=== PATIENT | male | born 2000 | race Caucasian/White ===

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

== ENCOUNTER 2020-01-01 14:48 | Emergency (ER) | payer OTHER, MEDICAID, SELFPAY ==
[2020-01-01 14:59] VITALS: BP 135/63; PULSE 88; RESP 18; TEMP 36.5; O2SAT 98; BMI 25.0
--- NOTE | 2020-01-01 15:28 | ED_ITS ---
HPI - Skin/Abscess/Foreign Bdy <JESSICA Blair - Last Filed: 01/01/20 16:32> General Chief complaint: Skin/Abscess/Foreign Body Stated complaint: ABSCESS ON BUTT NEEDS HIV TESTING Time Seen by Provider: 01/01/20 14:57 Source: patient Mode of arrival: Ambulatory Limitations: no limitations History of Present Illness HPI narrative: This is a 19-year-old male, smoker, who presents to ED with recurring abscess on his buttock and also seeking prophylactic treatments for STIs and HIV post exposure. Patient reports he was incarcerated in custodial and got out yesterday and had used ketamine, smoked pot and meth and met someone via on-line/phone MIGUEL ANGEL and had an unprotected (receptive) male-male anal sex last night. The patient is not familiar with the sexual partner and the partner uses IV drug. The patient is not sure of HIV status but believes to be is a high risk. Patient denies fever, chills, nausea or vomiting. Patient noticed started draining small to abscess yesterday. Patient was treated with Bactrim in the past which seem to be effective. Related Data Previous Rx's Medication Instructions Recorded albuterol sulfate [Proventil HFA] 2 puff INH Q4HP PRN #2 inh 01/26/17 adapalene 1 miguel angel TOPICAL HS #15 gm 08/17/17 atomoxetine [Strattera] 25 mg PO QDAY #30 cap 08/17/17 buspirone 15 mg PO BID #60 tab 08/17/17 sertraline [Zoloft] 100 mg PO QDAY #30 tab 08/17/17 cetirizine 10 mg PO QDAY #30 tab 02/07/18 erythromycin 0.5 inch EYE-RIGHT BID #1 gram 07/25/19 ondansetron 4 mg PO BID-TID PRN #7 tab 07/25/19 ondansetron 4 mg PO BID-TID PRN #10 tab 09/14/19 dolutegravir 50 mg PO DAILY 28 Days #28 tab 01/01/20 doxycycline hyclate 100 mg PO BID 5 Days #10 cap 01/01/20 emtricitabine-tenofovir (TDF) 1 tab PO DAILY 28 Days #28 tab 01/01/20 Allergies Allergy/AdvReac Type Severity Reaction Status Date / Time amoxicillin [AMOXICILLIN] Allergy Mild WELTS Verified 01/01/20 14:59 Review of Systems <JESSICA Blair - Last Filed: 01/01/20 16:32> Review of Systems Narrative: General: Denies fever, chills, fatigue, malaise, sweats. HEENT: Denies sinus pain, ear pain, sore throat, difficulty swallowing, dizziness. Respiratory: Denies dyspnea, cough, wheezing, hemoptysis, sputum. Cardiovascular: Denies chest pain, palpitations, orthopnea, edema. Gastrointestinal: Denies nausea, vomiting, abdominal pain, diarrhea, const ipation, melena. : See HPI Musculoskeletal: Denies weakness, joint pain or bony pain. Skin: See HPI Neurologic: Denies weakness, headache, numbness, change in speech, confusion, seizures, incoordination. Psychiatric: No concerning psychosocial issues. 12-point review of systems is negative except for those stated above. Patient History <ISIS BlairP - Last Filed: 01/01/20 16:32> Medical History ADHD (Acute) Social History Smoking Status: Current every day smoker substance use type: marijuana Smoking Status: Current every day smoker alcohol intake frequency: holidays/special occasions only Alcohol type: beer Substance Use Type: marijuana, crack/cocaine, heroin, amphetamines, hallucinogens, tranquilizers, sedatives, opiates, painkillers, club/marine designer drugs, inhalants, methamphetamine, prescription drug, unknown and other Exam <JESSICA Blair - Last Filed: 01/01/20 16:32> Narrative Exam Narrative: General appearance: well developed, well nourished, in no acute distress. Head: normocephalic, atraumatic, no scalp lesions, non-tender. ENT: Hearing grossly intact. Nose without bleeding, purulent discharge, septal hematoma or deviation. Airway patent. Neck/Thyroid: neck supple, full range of motion, no visible masses or meningeal signs. No JVD, non-tender without lymphadenopathy. Skin: two small lesions on right buttock. small induration without fluctuance. Mild erythema. No significant warmth to palpate or drainage noted. Warm and dry and appropriate color for ethnicity. Heart: no clubbing, no cyanosis, no edema. S1 and S2 normal. RRR w/o murmurs, clicks, or bruits. Lungs: Breathing even and unlabored. No stridor. No accessory muscles used. Able to speak in full sentences. Chest: normal shape and expansion. Abdomen: non-obese, non-distended. Neurologic: alert and oriented. 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 Psych: good eye contact, normal affect. Initial Vital Signs Initial Vital Signs: Vital Signs Temperature 97.7 F 01/01/20 14:59 Pulse Rate 88 01/01/20 14:59 Respiratory Rate 18 01/01/20 14:59 Blood Pressure 135/63 01/01/20 14:59 Pulse Oximetry 98 01/01/20 14:59 <Quiana Roger DO - Last Filed: 01/04/20 07:03> Initial Vital Signs Initial Vital Signs: Vital Signs Temperature 97.7 F 01/01/20 14:59 Pulse Rate 88 01/01/20 14:59 Respiratory Rate 18 01/01/20 14:59 Blood Pressure 135/63 01/01/20 14:59 Pulse Oximetry 98 01/01/20 14:59 Scores <JESSICA Blair - Last Filed: 01/01/20 16:32> [facility] Ricarda coma scale eye opening: Spontaneous Ricarda coma scale verbal response: Orientated Woodworth coma scale motor response: Obey commands Woodworth coma scale total score: 15 Course <JESSICA Blair - Last Filed: 01/01/20 16:32> Orders Ordered: Discontinued Medications Azithromycin (Zithromax) 1,000 mg PO NOW ONE Stop: 01/01/20 15:20 Last Admin: 01/01/20 15:55 Dose: 1,000 mg Documented by: HAYDEE Ceftriaxone Sodium (Rocephin) 250 mg IM NOW ONE Stop: 01/01/20 15:31 Last Admin: 01/01/20 15:55 Dose: 250 mg Documented by: HAYDEE Vital Signs Vital signs: Vital Signs - 8 hr 01/01/20 14:59 Temperature 97.7 F Pulse Rate 88 Respiratory Rate 18 Blood Pressure 135/63 Pulse Oximetry 98 <DO Winifred Freeman Last Filed: 01/04/20 07:03> Orders Ordered: Discontinued Medications Azithromycin (Zithromax) 1,000 mg PO NOW ONE Stop: 01/01/20 15:20 Last Admin: 01/01/20 15:55 Dose: 1,000 mg Documented by: HAYDEE Ceftriaxone Sodium (Rocephin) 250 mg IM NOW ONE Stop: 01/01/20 15:31 Last Admin: 01/01/20 15:55 Dose: 250 mg Documented by: HAYDEE Vital Signs Vital signs: Vital Signs - 8 hr 01/01/20 14:59 Temperature 97.7 F Pulse Rate 88 Respiratory Rate 18 Blood Pressure 135/63 Pulse Oximetry 98 MDM - Skin/Abscess/Foreign Bdy <JESSICA Blair - Last Filed: 01/01/20 16:32> Differential Diagnosis Differential diagnosis: Likely abscess of skin or subcutaneous tissue and other (high risk sexual behavior, possible STI infection exposure) Medical Records Attestation: I reviewed the patient's medical records. Lab Data Labs: Lab Results 01/01/20 01/01/20 Range/Units 15:18 15:26 Ur Chlamydia DNA (PCR) Not detected HIV 1&2 Ab/P24 Ag 4thGn Negative (NEGATIVE) N gonorrhoeae DNA (PCR) Not detected MDM Narrative Medical decision making narrative: This is a 19-year-old male who presents to ED with two skin abscess in buttock which recurs frequently and requesting post exposure to STIs prophylactic treatment. Patient reports he had encounter male to male anal sex was a receptive person with a new partner who is considered high risk with IV drug use last night. The patient provided urine sample for GC-chlamydia test. HIV was drawn today. Patient was medicated prophylactically for GC and chlamydia with azithromycin 1 g p.o. and Rocephin 250 mg IM injection. Patient discharged to home with post exposure prophylactic medications for HIV and advised to take 28 days and start immediately since patient was with a partner who has unknown HIV status and considered high risk. Patient advised to follow-up with primary care physician for test results. Advised safe sex practice and to avoid drug use. Social work consult was done and met with [facility] and Resource contact information has been provided. Return precautions were discussed with patient and patient verbalized understanding and agreement with treatment plan. <Quiana Roger DO - Last Filed: 01/04/20 07:03> Lab Data Labs: Lab Results 01/01/20 01/01/20 Range/Units 15:18 15:26 Ur Chlamydia DNA (PCR) Not detected HIV 1&2 Ab/P24 Ag 4thGn Negative (NEGATIVE) N gonorrhoeae DNA (PCR) Not detected Discharge Plan Departure Patient Disposition: Home Clinical Impression: Concern about sexually transmitted disease in male without diagnosis Abscess of skin or subcutaneous tissue Qualifiers: Site of cutaneous abscess: buttock Qualified Code(s): L02.31 - Cutaneous abscess of buttock Discharge Date/Time: 01/01/20 16:30 Instructions: Facts About Sexually Transmitted Infections, DI for Skin Abscess Activity Restrictions/Additional Instructions: You have been diagnosed with [small to abscess in right buttock and concerns for exposures to STIs from unprotected sex with high risk partner]. What to do: *Take your medications as directed. Please start doxycycline for abscess. Take twice a day for next 5 days. Use warm pack on affected site to help with healing and drainage. Start prophylactic post exposure for HIV as soon as possible for next 28 days. You need to follow-up with her primary care physician with lab results. Please consider practicing safe sex using protection such as condoms. Please avoid drug use. The medications are transmitted to [facility]. * [facility]: [phone]; [facility] at [phone]; and [facility] at [phone] for support for substance abuse and making a new ID. *Follow up with your primary care provider in 2-3 days, call for an appointment. Let them know you were seen in the ED and that we asked you to be seen in follow up. *Return to ED if you have any new, worsening, or concerning symptoms, such as [chest pain, breathing difficulty, fever, unusual rashes, feeling like faint, or any acute concerns]. Prescriptions: New dolutegravir 50 mg tablet 50 mg PO DAILY 28 Days Qty: 28 RF: 0 emtricitabine-tenofovir (TDF) 200-300 mg tablet 1 tab PO DAILY 28 Days Qty: 28 RF: 0 doxycycline hyclate 100 mg capsule 100 mg PO BID 5 Days Qty: 10 RF: 0 No Action albuterol sulfate [Proventil HFA] 90 MCG/PUFF HFA aerosol inhaler 2 puff INH Q4HP PRNQty: 2 RF: 1 sertraline [Zoloft] 100 MG tablet 100 mg PO QDAY Qty: 30 RF: 12 adapalene 0.1 % cream 1 miguel angel Topical HS Qty: 15 RF: 1 buspirone 15 MG tablet 15 mg PO BID Qty: 60 RF: 3 atomoxetine [Strattera] 25 MG capsule 25 mg PO QDAY Qty: 30 RF: 3 cetirizine 10 mg tablet 10 mg PO QDAY Qty: 30 RF: 5 erythromycin 5 mg/gram (0.5 %) ointment 0.5 inch EYE-RIGHT BID Qty: 1 RF: 0 ondansetron 4 mg tablet,disintegrating 4 mg PO BID-TID PRN (Reason: nausea and vomiting) Qty: 7 RF: 0 ondansetron 4 mg tablet,disintegrating 4 mg PO BID-TID PRN (Reason: nausea and vomiting) Qty: 10 RF: 0 Referrals: Owen Sky MD [Family Provider] - <Quiana Roger DO - Last Filed: 01/04/20 07:03> Cosign ED Attending Cosignature Attestation: I was immediately available in the department for consultation. Documentation has been reviewed. I agree with assessment and plan.
[2020-01-01] MEDS: cefTRIAXone 1,000 MG VIAL 250 MG IM (15:55)
[2020-01-01] MEDS: AZITHROMYCIN 250 MG TABLET 1000 MG PO (15:55)
[2020-01-01 16:27] VITALS: BP 117/59; PULSE 85; RESP 18; TEMP 36.6; O2SAT 98
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
[2020-01-01 16:43] LABS: HIV 1 & 2 Ab/Ag 4th Gen Combo NEGATIVE (NEGATIVE)
[2020-01-01 17:01] LABS: Urine N gonorrhoeae NOT DETECTED
[2020-01-01 17:02] LABS: Urine Chlamydia NOT DETECTED
== END 2020-01-01 16:30 | disposition home or self-care (01) ==
PROVIDERS: Emergency Provider Nurse Practitioner Family; Family Provider Family Medicine
DX: L02.31 Cutaneous abscess of buttock (principal); Z20.2 Contact with and (suspected) exposure to infections with a predominantly sexual mode of transmission; F19.10 Other psychoactive substance abuse, uncomplicated
CPT/HCPCS: 87389; 87491; 87591; 96372; 99283; J0696

== ENCOUNTER 2020-07-07 14:08 | Emergency (ER) | payer OTHER, MEDICAID, SELFPAY ==
[2020-07-07 15:03] VITALS: BP 119/74; PULSE 66; RESP 16; TEMP 36.9; O2SAT 99
[2020-07-07 15:41] LABS: Add Manual Diff / Slide Review NO; Basophils Absolute Auto 0 /uL (0-100); Basophils Percent Auto 0.5 % (0-2); Eosinophils Absolute Auto 200 /uL (0-450); Eosinophils Percent Auto 2.4 % (2-4); Hematocrit 44.2 % (41-53); Hemoglobin 15.1 g/dL (13.5-17.5); Lymphocytes Absolute Auto 1500 /uL (1100-4500); Lymphocytes Percent Auto 24.4 % (25-40); Mean Corpuscular HGB Conc 34.2 % (30-36); Mean Corpuscular Hemoglobin 29.7 PG (26-34); Mean Corpuscular Volume 86.7 fL (80-100); Monocytes Absolute Auto 600 /uL (0-900); Monocytes Percent Auto 9.8 % (3-14); Neutrophils Absolute Auto 3900 /uL (1500-7000); Neutrophils Percent Auto 62.9 % (50-75); Platelet Count 354 X10^3/uL (150-400); Red Cell Distribution Width 12.2 % (11.6-14.8); White Blood Cell Count 6.2 X10^3/uL (4.5-11.0)
[2020-07-07 15:51] LABS: Acetaminophen < 10 ug/mL (10-30); Alanine Aminotransferase 36 IU/L (<50); Albumin 4.4 g/dL (3.5-5.0); Albumin Globulin Ratio 1.1 (1.0-2.8); Alkaline Phosphatase 82 U/L (38-126); Aspartate Aminotransferase 29 IU/L (17-59); BUN Creatinine Ratio 12.6 (6-22); Bilirubin Total 0.4 mg/dL (0.2-1.3); Blood Urea Nitrogen 12 mg/dL (9-20); Calcium 9.4 mg/dL (8.4-10.2); Carbon Dioxide 32 mmol/L (22-32); Chloride 103 mmol/L (98-107); Estimated Glomerular Filt Rate > 60.0 mL/min (>60); Ethanol (ETOH) < 10 mg/dL; Globulin 4.1 g/dL (1.7-4.1); Glucose 76 mg/dL (70-100); HEMOLYSIS < 15 (0-50); Potassium 4.5 mmol/L (3.4-5.1); Salicylate < 1.0 mg/dL (<20); Sodium 138 mmol/L (137-145); Total Protein 8.5 g/dL (6.3-8.2)
[2020-07-07 15:51] LABS: UR Morphine/Opiate cutoff 300 Negative (Negative); Ur Creatinine Normal (Normal); Ur Specific Gravity Normal (Normal); Urine Amphetamines Negative (Negative); Urine Barbiturates Negative (Negative); Urine Benzodiazepines Negative (Negative); Urine Cocaine Negative (Negative); Urine MDMA Negative (Negative); Urine Methadone Negative (Negative); Urine Methamphetamines Negative (Negative); Urine Oxycodone Negative (Negative); Urine Phencyclidine Negative (Negative); Urine Tetrahydrocannabinol Negative (Negative); Urine Tricyclic Antidepressant Negative (Negative); Urine pH Normal (Normal)
[2020-07-07 16:06] LABS: COVID19 -Nasal RAPID Negative (Negative)
[2020-07-07 16:17] LABS: Free T4, Direct Thyroxine 1.16 ng/dL (0.78-2.19)
[2020-07-07 16:31] LABS: Thyroid Stimulating Hormone 1.64 uIU/mL (0.47-4.68)
--- NOTE | 2020-07-07 16:32 | ED.MEDCLEAR ---
HPI - Medical Clearance General Chief complaint: Medical Clearance Stated complaint: Medical Clearance Time Seen by Provider: 07/07/20 16:16 Source: patient Mode of arrival: Ambulatory Limitations: no limitations History of Present Illness HPI Narrative: Patient is a 20-year-old male admits to abusing benzodiazepines in the past who is currently per his report under a court order to attend inpatient rehab. He states that his last use of benzodiazepines was 4 days ago. Purchase this over the Internet. He states that ?I am withdrawing ?however he is unable to provide any symptoms that he is having. He states he was told to come here by his aviation ordnance officer for ?medical clearance? he denies any other toxic ingestions. Related Information Previous Rx's Medication Instructions Recorded albuterol sulfate [Proventil HFA] 2 puff INH Q4HP PRN #2 inh 01/26/17 adapalene 1 miguel angel TOPICAL HS #15 gm 08/17/17 atomoxetine [Strattera] 25 mg PO QDAY #30 cap 08/17/17 buspirone 15 mg PO BID #60 tab 08/17/17 sertraline [Zoloft] 100 mg PO QDAY #30 tab 08/17/17 cetirizine 10 mg PO QDAY #30 tab 02/07/18 erythromycin 0.5 inch EYE-RIGHT BID #1 gram 07/25/19 ondansetron 4 mg PO BID-TID PRN #7 tab 07/25/19 ondansetron 4 mg PO BID-TID PRN #10 tab 09/14/19 Allergies Allergy/AdvReac Type Severity Reaction Status Date / Time amoxicillin [AMOXICILLIN] Allergy Mild WELTS Verified 07/07/20 15:05 Review of Systems Constitutional Constitutional: Denies fever(s) and Denies headache(s) ENT Ears, Nose, Mouth, and Throat: Denies headache(s) Cardiovascular Cardiovascular: Denies chest pain and Denies dyspnea Respiratory Respiratory: Denies cough and Denies dyspnea Gastrointestinal Gastrointestinal: Denies abdominal pain, Denies nausea and Denies vomiting Genitourinary Genitourinary: Denies dysuria Genitourinary: Denies dysuria Musculoskeletal Musculoskeletal: Denies arthralgias and Denies myalgias Integumentary/Breasts Skin/Breast: Denies rash Neurologic Neurologic: Denies behavioral changes and Denies headache(s) Psychiatric Psychiatric: Denies behavioral changes Hematologic/Lymphatic On Anticoagulants: No Allergic/Immunologic Allergic/Immunologic: Denies urticaria Patient History Medical History ADHD Asthma Benzodiazepine abuse Bradycardia Conduct disorder (06/11/14) Medical clearance for incarceration Polydrug abuse Self-harming behavior SUICIDAL IDEATIONS Syncope Social History Smoking Status: Current every day smoker substance use type: marijuana Smoking Status: Current every day smoker alcohol intake frequency: holidays/special occasions only Alcohol type: beer Substance Use Type: marijuana, crack/cocaine, amphetamines, methamphetamine and prescription drug Exam Initial Vital Signs Initial Vital Signs: Vital Signs Temperature 98.5 F 07/07/20 15:03 Pulse Rate 66 07/07/20 15:03 Respiratory Rate 16 07/07/20 15:03 Blood Pressure 119/74 07/07/20 15:03 Pulse Oximetry 99 07/07/20 15:03 Const General: cooperative and comfortable Limitations: mental status not altered HENSD Head: normal to inspection and normocephalic Resp Effort & Inspection: normal respiratory effort Cardio Rate: regular rate GI Inspection: non-distended Skin Rashes: no rashes Neuro General: patient alert, patient awake and patient oriented x3 Extrem General: capillary refill normal Psych Appearance: grossly normal MDM - Medical Clearance Lab Data Attestation: I reviewed the patient's lab results. Result diagrams: 07/07/20 15:30 07/07/20 15:30 Labs: Lab Results 07/07/20 07/07/20 07/07/20 Range/Units 15:30 15:30 15:30 WBC 6.2 (4.5-11.0) X10^3/uL RBC 5.10 (4.5-5.9) X10^6/uL Hgb 15.1 (13.5-17.5) g/dL Hct 44.2 (41-53) % MCV 86.7 (80-100) fL MCH 29.7 (26-34) PG MCHC 34.2 (30-36) % RDW 12.2 (11.6-14.8) % Plt Count 354 (150-400) X10^3/uL Neut % (Auto) 62.9 (50-75) % Lymph % (Auto) 24.4 L (25-40) % Vigo % (Auto) 9.8 (3-14) % Eos % (Auto) 2.4 (2-4) % Baso % (Auto) 0.5 (0-2) % Neut # (Auto) 3900 (4360-0788) /uL Lymph # (Auto) 1500 (9423-6727) /uL Vigo # (Auto) 600 (0-900) /uL Eos # (Auto) 200 (0-450) /uL Baso # (Auto) 0 (0-100) /uL Sodium 138 (137-145) mmol/L Potassium 4.5 (3.4-5.1) mmol/L Chloride 103 (98-107) mmol/L Carbon Dioxide 32 (22-32) mmol/L BUN 12 (9-20) mg/dL Creatinine 0.95 (0.66-1.25) mg/dL Estimated GFR > 60.0 (>60) mL/min BUN/Creatinine Ratio 12.6 (6-22) Glucose 76 (70-100) mg/dL Calcium 9.4 (8.4-10.2) mg/dL Total Bilirubin 0.4 (0.2-1.3) mg/dL AST 29 (17-59) IU/L ALT 36 (<50) IU/L Alkaline Phosphatase 82 (38-126) U/L Total Protein 8.5 H (6.3-8.2) g/dL Albumin 4.4 (3.5-5.0) g/dL Globulin 4.1 (1.7-4.1) g/dL Albumin/Globulin Ratio 1.1 (1.0-2.8) TSH 1.64 (0.47-4.68) uIU/mL Free T4 1.16 (0.78-2.19) ng/dL Salicylates < 1.0 (<20) mg/dL U Opiates 300ng/mL cut (Negative) Ur Oxycodone Screen (Negative) Urine Methadone Screen (Negative) Acetaminophen < 10 L (10-30) ug/mL Ur Barbiturates Screen (Negative) U Tricyclic Antidepress (Negative) Ur Phencyclidine Scrn (Negative) Ur Amphetamines Screen (Negative) U Methamphetamines Scrn (Negative) Ur MDMA Scrn (Ecstasy) (Negative) U Benzodiazepines Scrn (Negative) Urine Cocaine Screen (Negative) U Marijuana (THC) Screen (Negative) Ethyl Alcohol < 10 ( - 10) mg/dL SARS-CoV-2 (PCR) (Negative) 07/07/20 07/07/20 Range/Units 15:38 15:40 WBC (4.5-11.0) X10^3/uL RBC (4.5-5.9) X10^6/uL Hgb (13.5-17.5) g/dL Hct (41-53) % MCV (80-100) fL MCH (26-34) PG MCHC (30-36) % RDW (11.6-14.8) % Plt Count (150-400) X10^3/uL Neut % (Auto) (50-75) % Lymph % (Auto) (25-40) % Vigo % (Auto) (3-14) % Eos % (Auto) (2-4) % Baso % (Auto) (0-2) % Neut # (Auto) (9535-9292) /uL Lymph # (Auto) (6297-7352) /uL Vigo # (Auto) (0-900) /uL Eos # (Auto) (0-450) /uL Baso # (Auto) (0-100) /uL Sodium (137-145) mmol/L Potassium (3.4-5.1) mmol/L Chloride (98-107) mmol/L Carbon Dioxide (22-32) mmol/L BUN (9-20) mg/dL Creatinine (0.66-1.25) mg/dL Estimated GFR (>60) mL/min BUN/Creatinine Ratio (6-22) Glucose (70-100) mg/dL Calcium (8.4-10.2) mg/dL Total Bilirubin (0.2-1.3) mg/dL AST (17-59) IU/L ALT (<50) IU/L Alkaline Phosphatase (38-126) U/L Total Protein (6.3-8.2) g/dL Albumin (3.5-5.0) g/dL Globulin (1.7-4.1) g/dL Albumin/Globulin Ratio (1.0-2.8) TSH (0.47-4.68) uIU/mL Free T4 (0.78-2.19) ng/dL Salicylates (<20) mg/dL U Opiates 300ng/mL cut Negative (Negative) Ur Oxycodone Screen Negative (Negative) Urine Methadone Screen Negative (Negative) Acetaminophen (10-30) ug/mL Ur Barbiturates Screen Negative (Negative) U Tricyclic Antidepress Negative (Negative) Ur Phencyclidine Scrn Negative (Negative) Ur Amphetamines Screen Negative (Negative) U Methamphetamines Scrn Negative (Negative) Ur MDMA Scrn (Ecstasy) Negative (Negative) U Benzodiazepines Scrn Negative (Negative) Urine Cocaine Screen Negative (Negative) U Marijuana (THC) Screen Negative (Negative) Ethyl Alcohol ( - 10) mg/dL SARS-CoV-2 (PCR) Negative (Negative) Urine Dip Bedside Urine Glucose Negative Bedside Urine Bilirubin - Negative Bedside Urine Ketone - Negative Urine Specific Conway 1.020 Bedside Urine Occult Blood - Negative Bedside Urine pH 7.5 Bedside Urine Protein - Negative Bedside Urine Urobilinogen - Negative Bedside Urine Nitrite - Negative Bedside Urine Leukocytes - Negative Esterase MDM Narrative Medical decision making narrative: Patient states he is withdrawing from benzodiazepines however can report no symptoms to support this. He is medically cleared and can attend rehab. Discharge Plan Departure Patient Disposition: Home Clinical Impression: Benzodiazepine abuse Instructions: Substance Use Disorder Activity Restrictions/Additional Instructions: As of the time of discharge you are medically cleared. I recommend that you contact your department of aviation ordnance officer this evening to see what he/she would like you to do. Return to the emergency department for any new or worsening symptoms Prescriptions: No Action albuterol sulfate [Proventil HFA] 90 MCG/PUFF HFA aerosol inhaler 2 puff INH Q4HP PRNQty: 2 RF: 1 sertraline [Zoloft] 100 MG tablet 100 mg PO QDAY Qty: 30 RF: 12 adapalene 0.1 % cream 1 miguel angel Topical HS Qty: 15 RF: 1 buspirone 15 MG tablet 15 mg PO BID Qty: 60 RF: 3 atomoxetine [Strattera] 25 MG capsule 25 mg PO QDAY Qty: 30 RF: 3 cetirizine 10 mg tablet 10 mg PO QDAY Qty: 30 RF: 5 erythromycin 5 mg/gram (0.5 %) ointment 0.5 inch EYE-RIGHT BID Qty: 1 RF: 0 ondansetron 4 mg tablet,disintegrating 4 mg PO BID-TID PRN (Reason: nausea and vomiting) Qty: 7 RF: 0 ondansetron 4 mg tablet,disintegrating 4 mg PO BID-TID PRN (Reason: nausea and vomiting) Qty: 10 RF: 0
--- NOTE | 2020-07-07 17:30 | PC.NURSE ---
1500: I spoke with the patient's Chalk Cutter Shani on the phone who reports that she has been in touch with his counselor at [facility] and that he is hopefully going to go to detox at [facility] ([facility] in [facility] for treatment regarding addictions.
--- NOTE | 2020-07-07 17:32 | PC.NURSE ---
1505: I spoke with [place] [facility]arr[facility] who reports that they have been in contact with Susie at [facility] and that the patient must go to a medical Detox facility first before coming to [facility] due to addiction to Benzos and risk of seizures.
--- NOTE | 2020-07-07 17:33 | PC.NURSE ---
1515: I called Shani, the chief green officer again to update her on information and received from her the number for [facility] I spoke with Jennifer, the patient's counselor at [facility] and informed her that the patient is unable to go to [facility] first and needs to go to a medical Detox facility. She states she will call the different detox facilities and get back to me.
--- NOTE | 2020-07-07 17:35 | PC.NURSE ---
1545: I received a call back from Jennifer at [facility] who reports that there are no overnight beds available however the patient can call [facility] in the morning at 8AM at which time they should hopefully have a bed available for him for detox. After this detox he can then go to [facility] for extended treatment/Rehab.
--- NOTE | 2020-07-07 17:37 | PC.NURSE ---
1700: I called [facility] to ask them if the testing we had done was adequate as a medical clearance and to ask if they want the information faxed or sent with the patient. They did not answer so I left a message with the team cdl driver. I printed the patient's results including Vital Signs, Negative Covid results, Urine drug screen, and basic bloodwork including negative tylenol and aspirin levels. I also included a note form the doctor reporting no open sores with active MRSA. I sent these home with the patient and the number to call [facility] at 8am tomorrow. He states he has not had Benzos or any substances in 3 days and he feels unwell. He does not have any benzos at home to take. I asked him to call 911 should he become worse or have seizures over night. He reports he is going to stay at his [facility]s [facility]. I also called and updated Shani his hazard mitigation officer with all of this information. She will follow up with him in the morning to ensure that he calls [facility] and gets there ok with appropriate paperwork. Patient is alert and oriented and verbalizes understanding of all of this information.
--- NOTE | 2020-07-07 17:42 | PC.NURSE ---
Patient admits to addiction to benzodiazepines including Xanax and research experimental benzo called Clonazelam. He also admits to alcohol use when his benzos run out and use of meth, cocaine, and marijuana. However he reports he ahs used none of these in the last 3 days. Reports some anxiety and unwell feelings related to detox.
== END 2020-07-07 17:00 | disposition home or self-care (01) ==
PROVIDERS: Emergency Provider Emergency Medicine; Family Provider Family Medicine
DX: F13.20 Sedative, hypnotic or anxiolytic dependence, uncomplicated (principal); Z20.822 Contact with and (suspected) exposure to COVID-19
CPT/HCPCS: 36415; 80053; 80305; 80320; 80329; 81003; 84439; 84443; 85025; 87635; 99283; C9803; G0480

== ENCOUNTER 2021-03-31 11:31 | Emergency (ER) | payer OTHER, MEDICAID, SELFPAY ==
[2021-03-31 12:47] VITALS: BP 139/87; PULSE 79; RESP 19; TEMP 36.8; O2SAT 98; BMI 28.3
== END 2021-03-31 16:41 | disposition left against medical advice (07) ==
PROVIDERS: Emergency Provider Emergency Medicine; Family Provider Family Medicine
DX: R11.2 Nausea with vomiting, unspecified (principal); R19.7 Diarrhea, unspecified
CPT/HCPCS: 99281

== ENCOUNTER 2021-10-20 11:47 | Emergency (ER) | payer OTHER, MEDICAID, SELFPAY ==
[2021-10-20 11:48] VITALS: BP 138/94; PULSE 83; RESP 14; TEMP 36.7; O2SAT 99; BMI 26.6
--- NOTE | 2021-10-20 12:30 | ED.EAR ---
HPI - Ear Problem <Carmella Fallon PA-C - Last Filed: 10/20/21 15:55> General Chief complaint: Ear Stated complaint: Thinks ear infection- hearing loss Time Seen by Provider: 10/20/21 12:05 Source: patient Mode of arrival: Ambulatory History of Present Illness HPI Narrative: Patient is a 21 year old M presenting with hearing loss in his right ear. He went swimming 10 days ago and felt water in his ear that subsided that day. He then flew from [place] to [place] and reports no pain during flight. He reports he first noticed a popping sensation,mild pain, and decreased hearing while vomiting from alcohol intoxication x 5 days ago. He was then exposed to loud music at a rave x 4 days ago. He also reports recent cocaine use. He states that his mild right ear pain is well-controlled with ibuprofen that he has been taking daily. He denies any sudden sharp ear pain, discharge from ear, headache, fever, sore throat, SOB, or nasal congestion. Related Data Previous Rx's Medication Instructions Recorded albuterol sulfate 90 mcg/actuation 2 puff INH Q4HP PRN #2 inh 01/26/17 aerosol inhaler (Proventil HFA) adapalene 0.1 % topical cream 1 miguel angel TOPICAL HS #15 gm 08/17/17 atomoxetine 25 mg capsule 25 mg PO QDAY #30 cap 08/17/17 (Strattera) buspirone 15 mg tablet 15 mg PO BID #60 tab 08/17/17 sertraline 100 mg tablet (Zoloft) 100 mg PO QDAY #30 tab 08/17/17 cetirizine 10 mg tablet 10 mg PO QDAY #30 tab 02/07/18 erythromycin 5 mg/gram (0.5 %) eye 0.5 inch EYE-RIGHT BID #1 gram 07/25/19 ointment ondansetron 4 mg disintegrating 4 mg PO BID-TID PRN #7 tab 07/25/19 tablet ondansetron 4 mg disintegrating 4 mg PO BID-TID PRN #10 tab 09/14/19 tablet azithromycin 250 mg tablet See Rx Instructions .ROUTE 10/20/21 (Zithromax Z-Evert) .COMPLEX #6 tab Allergies Allergy/AdvReac Type Severity Reaction Status Date / Time amoxicillin [AMOXICILLIN] Allergy Mild WELTS Verified 10/20/21 11:52 Review of Systems <Carmella Fallon PA-C - Last Filed: 10/20/21 15:55> Constitutional Constitutional: Denies body ache(s), Denies fatigue, Denies fever(s) and Denies headache(s) Eyes Eyes: Denies change in vision, Denies irritation and Denies eye pain ENT Ears, Nose, Mouth, and Throat: Denies dysphagia, Denies dizziness, Denies ear discharge, Reports otalgia, Denies headache(s), Reports hearing loss, Denies nasal congestion, Denies sinus pain, Denies sinus pressure and Denies sore throat Cardiovascular Cardiovascular: Reports system reviewed and no additional complaints, except as documented and Denies dyspnea Respiratory Respiratory: Denies chest congestion, Denies cough and Denies dyspnea Gastrointestinal Gastrointestinal: Denies dysphagia, Denies nausea and Reports vomiting Genitourinary Genitourinary: Reports system reviewed and no additional complaints, except as documented Musculoskeletal Musculoskeletal: Reports system reviewed and no additional complaints, except as documented and Denies myalgias Integumentary/Breasts Skin/Breast: Reports system reviewed and no additional complaints, except as documented, Denies new lesions, Denies erythema and Denies rash Neurologic Neurologic: Reports system reviewed and no additional complaints, except as documented, Denies confusion, Denies dizziness and Denies headache(s) Psychiatric Psychiatric: Reports system reviewed and no additional complaints, except as documented, Denies confusion, Denies homicidal ideation and Denies suicidal ideation Endocrine Endocrine: Reports system reviewed and no additional complaints, except as documented and Denies fatigue Hematologic/Lymphatic Hematologic/Lymphatic: Reports system reviewed and no additional complaints, except as documented Allergic/Immunologic Allergic/Immunologic: Reports system reviewed and no additional complaints, except as documented Patient History <Carmella Fallon PA-C - Last Filed: 10/20/21 15:55> Medical History ADHD Asthma Benzodiazepine abuse Bradycardia Conduct disorder (06/11/14) Medical clearance for incarceration Polydrug abuse Self-harming behavior SUICIDAL IDEATIONS Syncope Social History Smoking Status: Current every day smoker substance use type: marijuana Smoking Status: Current every day smoker tobacco type: cigarettes alcohol intake frequency: 3 or more drinks per day Alcohol type: beer Substance Use Type: former substance user, marijuana, crack/cocaine, amphetamines, methamphetamine and prescription drug Exam <Carmella Fallon PA-C - Last Filed: 10/20/21 15:55> Initial Vital Signs Initial Vital Signs: Vital Signs Temperature 98.1 F 10/20/21 11:48 Pulse Rate 83 10/20/21 11:48 Respiratory Rate 14 10/20/21 11:48 Blood Pressure 138/94 H 10/20/21 11:48 Pulse Oximetry 99 10/20/21 11:48 Const General: cooperative, healthy appearing and comfortable HENMT Head: normal to inspection Nose: external nose normal and nares normal Face and sinus: sinuses nontender and face symmetric Eyes General: Yes appearance normal, both eyes and all related structures Pupils: PERRL Neck Neck: normal visual inspection Resp Effort & Inspection: normal respiratory effort Auscultation: clear to auscultation bilaterally Cardio Rate: regular rate Rhythm: regular rhythm Neuro General: patient alert and patient awake Speech: speech normal Psych Speech and Movement: speech and movement normal Attitude: cooperative Thought Process: normal Thought Content: no homicidality and suicidality <Quiana Roger DO - Last Filed: 10/23/21 10:18> Initial Vital Signs Initial Vital Signs: Vital Signs Temperature 98.1 F 10/20/21 11:48 Pulse Rate 83 10/20/21 11:48 Respiratory Rate 14 10/20/21 11:48 Blood Pressure 138/94 H 10/20/21 11:48 Pulse Oximetry 99 10/20/21 11:48 Course <Carmella Fallon PA-C - Last Filed: 10/20/21 15:55> Orders Ordered: ED Orders 10/20/21 11:54 Consult to [facility] Assistant Professor Of History Stat Vital Signs Vital signs: Vital Signs - 8 hr 10/20/21 11:48 10/20/21 14:10 Temperature 98.1 F Pulse Rate 83 88 Respiratory Rate 14 18 Blood Pressure 138/94 H 135/85 Pulse Oximetry 99 99 <Quiana Roger DO - Last Filed: 10/23/21 10:18> Orders Ordered: ED Orders 10/20/21 11:54 Consult to [facility] Assistant Professor Of History Stat Vital Signs Vital signs: Vital Signs - 8 hr 10/20/21 11:48 05/17/22 14:10 Temperature 98.1 F Pulse Rate 83 88 Respiratory Rate 14 18 Blood Pressure 138/94 H 135/85 Pulse Oximetry 99 99 Medical Decision Making <Carmella Fallon PA-C - Last Filed: 10/20/21 15:55> [facility] Narrative Medical decision making narrative: Patient is presenting with increasing hearing loss in his right ear x 5 days. Hearing loss began after vomiting from alcohol intoxication. Patient also reports a recent flight and exposure to loud music. He also uses Q-tips to clean his ears and has a history of cerumen impaction. Upon physical exam, patient had a bilateral cerumen impaction. After irrigation, I had better visualization and tympanic membrane and ear canal were erythematous. Hearing was not improved with irrigation. He had no tenderness to palpation of the external ear. He also denies any sharp ear pain, ear drainage, fever, sinus pressure, nasal congestion, or SOB. Based on the patient's history and physical exam, this is likely acute otitis media. I submitted an antibiotic prescription and counseled on proper ear hygiene to reduce cerumen. Social work was consulted based on patient's unstable living conditions and illegal substance use. He states that he feels comfortable and safe with his current lifestyle and does not have suicidal or homicidal ideation. Discharge Plan Departure Patient Disposition: Home Clinical Impression: Otitis media Qualifiers: Otitis media type: unspecified Chronicity: acute Qualified Code(s): H66.90 - Otitis media, unspecified, unspecified ear Impacted cerumen Qualifiers: Laterality: bilateral Qualified Code(s): H61.23 - Impacted cerumen, bilateral Instructions: Cerumen Impaction, Middle Ear Infection Activity Restrictions/Additional Instructions: You were seen today for hearing loss due to middle ear infection. An new antibiotic prescription was sent to [facility]. Please take the entire prescription, even if your symptoms begin to resolve. Return if you have any worsening symptoms such as severe ear pain, worsening hearing loss, fever. I hope you start feeling better soon. Prescriptions: New azithromycin [Zithromax Z-Evert] 250 mg tablet See Rx Instructions .ROUTE .COMPLEX Qty: 6 0RF Rx Instructions: For 250 mg dose pack: take 500 mg today (day 1), then 250 mg for 4 days (days 2-5) No Action albuterol sulfate [Proventil HFA] 90 MCG/PUFF HFA aerosol inhaler 2 puff INH Q4HP PRNQty: 2 1RF sertraline [Zoloft] 100 MG tablet 100 mg PO QDAY Qty: 30 12RF adapalene 0.1 % cream 1 miguel angel Topical HS Qty: 15 1RF buspirone 15 MG tablet 15 mg PO BID Qty: 60 3RF atomoxetine [Strattera] 25 MG capsule 25 mg PO QDAY Qty: 30 3RF cetirizine 10 mg tablet 10 mg PO QDAY Qty: 30 5RF erythromycin 5 mg/gram (0.5 %) ointment 0.5 inch EYE-RIGHT BID Qty: 1 0RF ondansetron 4 mg tablet,disintegrating 4 mg PO BID-TID PRN (Reason: nausea and vomiting) Qty: 7 0RF ondansetron 4 mg tablet,disintegrating 4 mg PO BID-TID PRN (Reason: nausea and vomiting) Qty: 10 0RF <Quiana Roger DO - Last Filed: 10/23/21 10:18> Cosign ED Attending Costorieature Attestation: I was immediately available in the department for consultation. Documentation has been reviewed. I agree with assessment and plan.
--- NOTE | 2021-10-20 12:38 | CM.SWNOTE ---
SPECIAL AGENT IN CHARGE Assessment Note SPECIAL AGENT IN CHARGE receives consult for 21 y/o male who presents to ED due to concern for loss of hearing and ear pain after recent vomiting from ETOH and Cocaine use. Patient has hx of ODD, ADHD, Polysubstance use, Depression and SI. Patient presents as A/Ox4 Euthymic, full range, congruent with mood. Patient denies HI and SI and endorses he feels safe but endorses there is drug use where he is living. Patient endorses he has several Patient endorses he is homeless and currently lives with a friend on [address]. Patient endorses he recently came back to the area from [place] where his son lives, patient endorses he had limited to no supports there. Patient endorses he was working and had food stamp benefits. Per registration, patient has [facility] Health Options and Medicaid insurance. Patient endorses he knows about resources available to him and he is interested in looking into [facility] for custodial and [facility] for [facility] rehab. Patient denies the need for any assistance from SPECIAL AGENT IN CHARGE or resources. It is the opinion of this SPECIAL AGENT IN CHARGE that patient is safe to d/c when medically clear. SPECIAL AGENT IN CHARGE reviews the above with ED provider Carmella Fallon PA-C who indicates agreement and understanding. Plan: patient to d/c to community when medically clear. ELENO Hendricks
[2021-10-20 14:10] VITALS: BP 135/85; PULSE 88; RESP 18; O2SAT 99
== END 2021-10-20 14:11 | disposition home or self-care (01) ==
PROVIDERS: Emergency Provider Physician Assistant; Family Provider Family Medicine
DX: H66.91 Otitis media, unspecified, right ear (principal); H61.23 Impacted cerumen, bilateral
CPT/HCPCS: 69209; 99283

== ENCOUNTER 2022-04-18 18:52 | Emergency (ER) | payer OTHER, MEDICAID, SELFPAY ==
[2022-04-18 19:15] VITALS: BP 120/73; PULSE 86; RESP 18; TEMP 37.2; O2SAT 98; BMI 26.6
[2022-04-18 20:14] VITALS: O2SAT 99
[2022-04-18 20:15] VITALS: BP 121/69; O2SAT 98
--- NOTE | 2022-04-18 20:31 | ED_ITS ---
HPI - General Adult <Shashank Whitman DO - Last Filed: 04/19/22 23:01> General Chief complaint: Toxicology Problem Stated complaint: Took a Joy of Mushrooms, Can't Walk Time Seen by Provider: 04/18/22 20:21 Source: patient Mode of arrival: Wheelchair Limitations: no limitations History of Present Illness HPI narrative: Patient is a 22-year-old male. A known history of both benzodiazepine and also opioid abuse. He also smokes marijuana. States yesterday he felt some mushrooms growing outside of a bank. He states that they looked like mushrooms that he has taken in the past. He went on a mushroom identification site and sent some pictures to some other individuals in the told him that they were consistent with the psychedelics mushroom so he ate a couple oz of them yesterday. He did hallucinate yesterday. He did some more mushrooms earlier today. Did not have a strong of her action today is what he did yesterday but he states that he could not walk. He tried to come to the emergency department but went back home and had his father dropped him off. He denies any alcohol. He states he is interested in detox. He has been to detox in the past. He also states he is concerned about syphilis. 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 Was treated with antibiotics. Had intercourse with another individual. Develop no specific symptoms but went on another course of antibiotics but he states that it was sporadic and taking these. He states that it sometimes hurts when he urinates but not currently. He is no rashes. No other genital findings to include lumps or bumps. Related Data Previous Rx's Medication Instructions Recorded albuterol sulfate 90 mcg/actuation 2 puff INH Q4HP PRN #2 inhalations 01/26/17 aerosol inhaler (Proventil HFA) adapalene 0.1 % topical cream 1 miguel angel topical HS ##15 08/17/17 atomoxetine 25 mg capsule 25 mg PO QDAY #30 caps 08/17/17 (Strattera) buspirone 15 mg tablet 15 mg PO BID #60 tabs 08/17/17 sertraline 100 mg tablet (Zoloft) 100 mg PO QDAY #30 tabs 08/17/17 cetirizine 10 mg tablet 10 mg PO QDAY #30 tabs 02/07/18 erythromycin 5 mg/gram (0.5 %) eye 0.5 inch EYE-RIGHT BID #1 g 07/25/19 ointment ondansetron 4 mg disintegrating 4 mg PO BID-TID PRN nausea and 07/25/19 tablet vomiting #7 tabs ondansetron 4 mg disintegrating 4 mg PO BID-TID PRN nausea and 09/14/19 tablet vomiting #10 tabs azithromycin 250 mg tablet See Rx Instructions PO .COMPLEX #6 10/20/21 (Zithromax Z-Evert) tabs Allergies Allergy/AdvReac Type Severity Reaction Status Date / Time amoxicillin [AMOXICILLIN] Allergy Mild WELTS Verified 02/22/22 12:18 Review of Systems <Shashank Whitman DO - Last Filed: 04/19/22 23:01> Review of Systems ROS Unobtainable: All systems reviewed & are unremarkable except as noted in HPI and below Patient History <DO Winifred Marley Last Filed: 04/19/22 23:01> Medical History ADHD Asthma Benzodiazepine abuse Bradycardia Conduct disorder (06/11/14) Medical clearance for incarceration Polydrug abuse Self-harming behavior SUICIDAL IDEATIONS Syncope Social History Smoking Status: Current every day smoker substance use type: marijuana Smoking Status: Current every day smoker tobacco type: cigarettes alcohol intake frequency: 3 or more drinks per day Alcohol type: beer Substance Use Type: former substance user, marijuana, crack/cocaine, ampheta mines, methamphetamine, prescription drug and other Exam <DO Winifred Marley Last Filed: 04/19/22 23:01> Initial Vital Signs Initial Vital Signs: Vital Signs Temperature 99.0 F 04/18/22 19:15 Pulse Rate 86 04/18/22 19:15 Respiratory Rate 18 04/18/22 19:15 Blood Pressure 120/73 04/18/22 19:15 Pulse Oximetry 98 04/18/22 19:15 Oxygen Delivery Method 04/18/22 19:15 Const General: cooperative HENMT Head: normal to inspection and normocephalic Resp Effort & Inspection: normal respiratory effort Auscultation: clear to auscultation bilaterally Cardio Rate: regular rate Rhythm: regular rhythm GI Inspection: normal to inspection Skin General: no rashes or lesions noted Neuro General: patient alert, patient awake, patient oriented x3 and moves all extremities Speech: speech normal Gait: normal gait Motor: muscle tone normal throughout Extrem General: normal to inspection and capillary refill normal Psych Appearance: grossly normal <Grace Chi DO - Last Filed: 04/19/22 18:43> Initial Vital Signs Initial Vital Signs: Vital Signs Temperature 99.0 F 04/18/22 19:15 Pulse Rate 86 04/18/22 19:15 Respiratory Rate 18 04/18/22 19:15 Blood Pressure 120/73 04/18/22 19:15 Pulse Oximetry 98 04/18/22 19:15 Oxygen Delivery Method 04/18/22 19:15 Course <Shashank Whitman DO - Last Filed: 04/19/22 23:01> Orders Ordered: Discontinued Medications Chlordiazepoxide HCl (Chlordiazepoxide 25 Mg Capsule) 50 mg PO Q6HR [facility] Last Admin: 04/19/22 18:16 Dose: 50 mg Documented By: Admin: 04/19/22 12:37 Dose: 50 mg Documented By: SOPHIE Nicotine (Nicotine 21 Mg Patch) 21 mg TOP NOW ONE Stop: 04/19/22 09:46 Last Admin: 04/19/22 10:04 Dose: 21 mg Documented By: SOPHIE Ondansetron HCl (Ondansetron 4 Mg Odt) 4 mg SL NOW ONE Stop: 04/19/22 05:30 Last Admin: 04/19/22 05:33 Dose: 4 mg Documented By: VINAYAK Vital Signs Vital signs: Vital Signs - 8 hr 04/19/22 09:40 Temperature 98.7 F Pulse Rate 73 Respiratory Rate 16 Blood Pressure 113/72 Pulse Oximetry 100 Oxygen Delivery Method Room Air <Grace Chi DO - Last Filed: 04/19/22 18:43> Orders Ordered: Discontinued Medications Chlordiazepoxide HCl (Chlordiazepoxide 25 Mg Capsule) 50 mg PO Q6HR [facility] Last Admin: 04/19/22 18:16 Dose: 50 mg Documented By: Admin: 04/19/22 12:37 Dose: 50 mg Documented By: SOPHIE Nicotine (Nicotine 21 Mg Patch) 21 mg TOP NOW ONE Stop: 04/19/22 09:46 Last Admin: 04/19/22 10:04 Dose: 21 mg Documented By: SOPHIE Ondansetron HCl (Ondansetron 4 Mg Odt) 4 mg SL NOW ONE Stop: 04/19/22 05:30 Last Admin: 04/19/22 05:33 Dose: 4 mg Documented By: VINAYAK Vital Signs Vital signs: Vital Signs - 8 hr 04/19/22 09:40 Temperature 98.7 F Pulse Rate 73 Respiratory Rate 16 Blood Pressure 113/72 Pulse Oximetry 100 Oxygen Delivery Method Room Air Medical Decision Making <Shashank Whitman DO - Last Filed: 04/19/22 23:01> Medical Records Medical records reviewed: Yes I reviewed the patient's medical records. Lab Data Lab results reviewed: Yes I reviewed the patient's lab results. Result diagrams: 04/18/22 20:44 04/18/22 20:44 Labs: Lab Results 04/18/22 04/18/22 04/18/22 Range/Units 20:35 20:44 20:44 WBC 8.8 (4.5-11.0) X10^3/uL RBC 4.71 (4.5-5.9) X10^6/uL Hgb 14.3 (13.5-17.5) g/dL Hct 40.9 L (41-53) % MCV 86.9 (80-100) fL MCH 30.4 (26-34) PG MCHC 35.0 (30-36) % RDW 11.8 (11.6-14.8) % Plt Count 304 (150-400) X10^3/uL Neut % (Auto) 60.5 (50-75) % Lymph % (Auto) 25.3 (25-40) % [place] % (Auto) 7.0 (3-14) % Eos % (Auto) 6.4 H (2-4) % Baso % (Auto) 0.8 (0-2) % Neut # (Auto) 5300 (9738-6781) /uL Lymph # (Auto) 2200 (0550-3851) /uL [place] # (Auto) 600 (0-900) /uL Eos # (Auto) 600 H (0-450) /uL Baso # (Auto) 100 (0-100) /uL Sodium 140 (137-145) mmol/L Potassium 3.9 (3.4-5.1) mmol/L Chloride 105 (98-107) mmol/L Carbon Dioxide 23 (22-32) mmol/L BUN 17 (9-20) mg/dL Creatinine 1.24 (0.66-1.25) mg/dL Estimated GFR > 60 (>60) mL/min BUN/Creatinine Ratio 13.7 (6-22) Glucose 103 H (70-100) mg/dL Calcium 8.9 (8.4-10.2) mg/dL Total Bilirubin 0.3 (0.2-1.3) mg/dL AST 27 (17-59) IU/L ALT 68 H (<50) IU/L Alkaline Phosphatase 73 (38-126) U/L Total Protein 7.7 (6.3-8.2) g/dL Albumin 4.2 (3.5-5.0) g/dL Globulin 3.5 (1.7-4.1) g/dL Albumin/Globulin Ratio 1.2 (1.0-2.8) Lipase 101 (23-300) U/L Salicylates < 1.0 (<20) mg/dL U Opiates 300ng/mL cut (Negative) Ur Oxycodone Screen (Negative) Urine Methadone Screen (Negative) Acetaminophen < 10 (10-30) ug/mL Ur Barbiturates Screen (Negative) U Tricyclic Antidepress (Negative) Ur Phencyclidine Scrn (Negative) Ur Amphetamines Screen (Negative) U Methamphetamines Scrn (Negative) Ur MDMA Scrn (Ecstasy) (Negative) U Benzodiazepines Scrn (Negative) Urine Cocaine Screen (Negative) U Marijuana (THC) Screen (Negative) Ethyl Alcohol < 10 ( - 10) mg/dL SARS-CoV-2 (PCR) Negative (Negative) 04/18/22 Range/Units 20:50 WBC (4.5-11.0) X10^3/uL RBC (4.5-5.9) X10^6/uL Hgb (13.5-17.5) g/dL Hct (41-53) % MCV (80-100) fL MCH (26-34) PG MCHC (30-36) % RDW (11.6-14.8) % Plt Count (150-400) X10^3/uL Neut % (Auto) (50-75) % Lymph % (Auto) (25-40) % [place] % (Auto) (3-14) % Eos % (Auto) (2-4) % Baso % (Auto) (0-2) % Neut # (Auto) (9269-7366) /uL Lymph # (Auto) (3654-8809) /uL [place] # (Auto) (0-900) /uL Eos # (Auto) (0-450) /uL Baso # (Auto) (0-100) /uL Sodium (137-145) mmol/L Potassium (3.4-5.1) mmol/L Chloride (98-107) mmol/L Carbon Dioxide (22-32) mmol/L BUN (9-20) mg/dL Creatinine (0.66-1.25) mg/dL Estimated GFR (>60) mL/min BUN/Creatinine Ratio (6-22) Glucose (70-100) mg/dL Calcium (8.4-10.2) mg/dL Total Bilirubin (0.2-1.3) mg/dL AST (17-59) IU/L ALT (<50) IU/L Alkaline Phosphatase (38-126) U/L Total Protein (6.3-8.2) g/dL Albumin (3.5-5.0) g/dL Globulin (1.7-4.1) g/dL Albumin/Globulin Ratio (1.0-2.8) Lipase (23-300) U/L Salicylates (<20) mg/dL U Opiates 300ng/mL cut Negative (Negative) Ur Oxycodone Screen Negative (Negative) Urine Methadone Screen Negative (Negative) Acetaminophen (10-30) ug/mL Ur Barbiturates Screen Negative (Negative) U Tricyclic Antidepress Negative (Negative) Ur Phencyclidine Scrn Negative (Negative) Ur Amphetamines Screen Negative (Negative) U Methamphetamines Scrn Negative (Negative) Ur MDMA Scrn (Ecstasy) Negative (Negative) U Benzodiazepines Scrn Positive H (Negative) Urine Cocaine Screen Negative (Negative) U Marijuana (THC) Screen Positive H (Negative) Ethyl Alcohol ( - 10) mg/dL SARS-CoV-2 (PCR) (Negative) MDM Narrative Medical decision making narrative: Despite the report of not being able to walk he did ambulate into the emergency department and also into the exam room. He is alert oriented. GCS of 15. Has no specific complaints. Has no skin complaints. An RPR was ordered for evaluation of syphilis. He will be contacted with the results of this. Patient is interested in detox. Patient is medically cleared. Social work consult placed. Will attempt to find facility. Care turned over to day provider to follow-up and disposition. Alon 04/19/22: Patient signed out to myself by Dr. Whitman. Patient does have serum VDRL pending this is a send out can take up to 5 days. Patient is otherwise medically cleared. Social consult placed. [facility] had [facility] patient but because of benzodiazepine use they can not take him. We will continue to seek placement elsewhere. Discussed with patient he would like to continue to seek placement. Patient has been [facility] for medically assisted detox and he found this useful place. They do not currently have beds but [facility] has beds the inpatient facility. Patient given Librium p.o. here in the department. Patient accepted by Dr. Bhat, [facility]. Awaiting transport at 2100. Dr whitman: Prior transport arrival patient eloped. <Grace Chi, DO - Last Filed: 04/19/22 18:43> Lab Data Labs: Lab Results 04/18/22 04/18/22 04/18/22 Range/Units 20:35 20:44 20:44 WBC 8.8 (4.5-11.0) X10^3/uL RBC 4.71 (4.5-5.9) X10^6/uL Hgb 14.3 (13.5-17.5) g/dL Hct 40.9 L (41-53) % MCV 86.9 (80-100) fL MCH 30.4 (26-34) PG MCHC 35.0 (30-36) % RDW 11.8 (11.6-14.8) % Plt Count 304 (150-400) X10^3/uL Neut % (Auto) 60.5 (50-75) % Lymph % (Auto) 25.3 (25-40) % [place] % (Auto) 7.0 (3-14) % Eos % (Auto) 6.4 H (2-4) % Baso % (Auto) 0.8 (0-2) % Neut # (Auto) 5300 (6440-8467) /uL Lymph # (Auto) 2200 (1642-8366) /uL [place] # (Auto) 600 (0-900) /uL Eos # (Auto) 600 H (0-450) /uL Baso # (Auto) 100 (0-100) /uL Sodium 140 (137-145) mmol/L Potassium 3.9 (3.4-5.1) mmol/L Chloride 105 (98-107) mmol/L Carbon Dioxide 23 (22-32) mmol/L BUN 17 (9-20) mg/dL Creatinine 1.24 (0.66-1.25) mg/dL Estimated GFR > 60 (>60) mL/min BUN/Creatinine Ratio 13.7 (6-22) Glucose 103 H (70-100) mg/dL Calcium 8.9 (8.4-10.2) mg/dL Total Bilirubin 0.3 (0.2-1.3) mg/dL AST 27 (17-59) IU/L ALT 68 H (<50) IU/L Alkaline Phosphatase 73 (38-126) U/L Total Protein 7.7 (6.3-8.2) g/dL Albumin 4.2 (3.5-5.0) g/dL Globulin 3.5 (1.7-4.1) g/dL Albumin/Globulin Ratio 1.2 (1.0-2.8) Lipase 101 (23-300) U/L Salicylates < 1.0 (<20) mg/dL U Opiates 300ng/mL cut (Negative) Ur Oxycodone Screen (Negative) Urine Methadone Screen (Negative) Acetaminophen < 10 (10-30) ug/mL Ur Barbiturates Screen (Negative) U Tricyclic Antidepress (Negative) Ur Phencyclidine Scrn (Negative) Ur Amphetamines Screen (Negative) U Methamphetamines Scrn (Negative) Ur MDMA Scrn (Ecstasy) (Negative) U Benzodiazepines Scrn (Negative) Urine Cocaine Screen (Negative) U Marijuana (THC) Screen (Negative) Ethyl Alcohol < 10 ( - 10) mg/dL SARS-CoV-2 (PCR) Negative (Negative) 04/18/22 Range/Units 20:50 WBC (4.5-11.0) X10^3/uL RBC (4.5-5.9) X10^6/uL Hgb (13.5-17.5) g/dL Hct (41-53) % MCV (80-100) fL MCH (26-34) PG MCHC (30-36) % RDW (11.6-14.8) % Plt Count (150-400) X10^3/uL Neut % (Auto) (50-75) % Lymph % (Auto) (25-40) % [place] % (Auto) (3-14) % Eos % (Auto) (2-4) % Baso % (Auto) (0-2) % Neut # (Auto) (8758-5813) /uL Lymph # (Auto) (8652-7106) /uL [place] # (Auto) (0-900) /uL Eos # (Auto) (0-450) /uL Baso # (Auto) (0-100) /uL Sodium (137-145) mmol/L Potassium (3.4-5.1) mmol/L Chloride (98-107) mmol/L Carbon Dioxide (22-32) mmol/L BUN (9-20) mg/dL Creatinine (0.66-1.25) mg/dL Estimated GFR (>60) mL/min BUN/Creatinine Ratio (6-22) Glucose (70-100) mg/dL Calcium (8.4-10.2) mg/dL Total Bilirubin (0.2-1.3) mg/dL AST (17-59) IU/L ALT (<50) IU/L Alkaline Phosphatase (38-126) U/L Total Protein (6.3-8.2) g/dL Albumin (3.5-5.0) g/dL Globulin (1.7-4.1) g/dL Albumin/Globulin Ratio (1.0-2.8) Lipase (23-300) U/L Salicylates (<20) mg/dL U Opiates 300ng/mL cut Negative (Negative) Ur Oxycodone Screen Negative (Negative) Urine Methadone Screen Negative (Negative) Acetaminophen (10-30) ug/mL Ur Barbiturates Screen Negative (Negative) U Tricyclic Antidepress Negative (Negative) Ur Phencyclidine Scrn Negative (Negative) Ur Amphetamines Screen Negative (Negative) U Methamphetamines Scrn Negative (Negative) Ur MDMA Scrn (Ecstasy) Negative (Negative) U Benzodiazepines Scrn Positive H (Negative) Urine Cocaine Screen Negative (Negative) U Marijuana (THC) Screen Positive H (Negative) Ethyl Alcohol ( - 10) mg/dL SARS-CoV-2 (PCR) (Negative) MDM Narrative Medical decision making narrative: Despite the report of not being able to walk he did ambulate into the emergency department and also into the exam room. He is alert oriented. GCS of 15. Has no specific complaints. Has no skin complaints. An RPR was ordered for evaluation of syphilis. He will be contacted with the results of this. Patient is interested in detox. Patient is medically cleared. Social work consult placed. Will attempt to find facility. Care turned over to day provider to follow-up and disposition. Alon 04/19/22: Patient signed out to myself by Dr. Whitman. Patient does have serum VDRL pending this is a send out can take up to 5 days. Patient is otherwi se medically cleared. Social consult placed. [facility] interviewed patient but because of benzodiazepine use they can not take him. We will continue to seek placement elsewhere. Discussed with patient he would like to continue to seek placement. Patient has been [facility] for medically assisted detox and he found this useful place. They do not currently have beds but [facility] has beds the inpatient facility. Patient given Librium p.o. here in the department. Patient accepted by Dr. Bhat, [facility]. Awaiting transport at 2100. Discharge Plan Departure Patient Disposition: Left Against Medical Advice Clinical Impression: Polysubstance abuse, Patient left before treatment completed Prescriptions: No Action albuterol sulfate [Proventil HFA] 90 MCG/PUFF HFA aerosol inhaler 2 puff INH Q4HP PRNQty: 2 1RF sertraline [Zoloft] 100 MG tablet 100 mg PO QDAY Qty: 30 12RF adapalene 0.1 % cream 1 miguel angel Topical HS Qty: 15 1RF buspirone 15 MG tablet 15 mg PO BID Qty: 60 3RF atomoxetine [Strattera] 25 MG capsule 25 mg PO QDAY Qty: 30 3RF cetirizine 10 mg tablet 10 mg PO QDAY Qty: 30 5RF erythromycin 5 mg/gram (0.5 %) ointment 0.5 inch EYE-RIGHT BID Qty: 1 0RF ondansetron 4 mg tablet,disintegrating 4 mg PO BID-TID PRN (Reason: nausea and vomiting) Qty: 7 0RF ondansetron 4 mg tablet,disintegrating 4 mg PO BID-TID PRN (Reason: nausea and vomiting) Qty: 10 0RF azithromycin [Zithromax Z-Evert] 250 mg tablet See Rx Instructions .ROUTE .COMPLEX Qty: 6 0RF Rx Instructions: For 250 mg dose pack: take 500 mg today (day 1), then 250 mg for 4 days (days 2-5) Referrals: Miscellaneous,Doctor, MD [Primary Care Provider] -
[2022-04-18 21:01] LABS: COVID19 -Nasal RAPID Negative (Negative)
[2022-04-18 21:14] LABS: UR Morphine/Opiate cutoff 300 Negative (Negative); Ur Creatinine Normal (Normal); Ur Specific Gravity Normal (Normal); Urine Amphetamines Negative (Negative); Urine Barbiturates Negative (Negative); Urine Benzodiazepines Positive (Negative); Urine Cocaine Negative (Negative); Urine MDMA Negative (Negative); Urine Methadone Negative (Negative); Urine Methamphetamines Negative (Negative); Urine Oxycodone Negative (Negative); Urine Phencyclidine Negative (Negative); Urine Tetrahydrocannabinol Positive (Negative); Urine Tricyclic Antidepressant Negative (Negative); Urine pH Normal (Normal)
[2022-04-18 21:17] LABS: Add Manual Diff / Slide Review NO; Basophils Absolute Auto 100 /uL (0-100); Basophils Percent Auto 0.8 % (0-2); Eosinophils Absolute Auto 600 /uL (0-450); Eosinophils Percent Auto 6.4 % (2-4); Hematocrit 40.9 % (41-53); Hemoglobin 14.3 g/dL (13.5-17.5); Lymphocytes Absolute Auto 2200 /uL (1100-4500); Lymphocytes Percent Auto 25.3 % (25-40); Mean Corpuscular Hemoglobin 30.4 PG (26-34); Mean Corpuscular Volume 86.9 fL (80-100); Monocytes Absolute Auto 600 /uL (0-900); Neutrophils Absolute Auto 5300 /uL (1500-7000); Neutrophils Percent Auto 60.5 % (50-75); Platelet Count 304 X10^3/uL (150-400); Red Blood Cell Count 4.71 X10^6/uL (4.5-5.9); Red Cell Distribution Width 11.8 % (11.6-14.8); White Blood Cell Count 8.8 X10^3/uL (4.5-11.0)
[2022-04-18 21:25] LABS: Alanine Aminotransferase 68 IU/L (<50); Albumin 4.2 g/dL (3.5-5.0); Albumin Globulin Ratio 1.2 (1.0-2.8); Alkaline Phosphatase 73 U/L (38-126); Aspartate Aminotransferase 27 IU/L (17-59); BUN Creatinine Ratio 13.7 (6-22); Bilirubin Total 0.3 mg/dL (0.2-1.3); Blood Urea Nitrogen 17 mg/dL (9-20); Calcium 8.9 mg/dL (8.4-10.2); Carbon Dioxide 23 mmol/L (22-32); Chloride 105 mmol/L (98-107); Estimated Glomerular Filt Rate > 60 mL/min (>60); Globulin 3.5 g/dL (1.7-4.1); Glucose 103 mg/dL (70-100); HEMOLYSIS < 15 (0-50); Lipase 101 U/L (23-300); Potassium 3.9 mmol/L (3.4-5.1); Sodium 140 mmol/L (137-145); Total Protein 7.7 g/dL (6.3-8.2)
[2022-04-18 21:53] LABS: Acetaminophen < 10 ug/mL (10-30); Ethanol (ETOH) < 10 mg/dL; Salicylate < 1.0 mg/dL (<20)
--- NOTE | 2022-04-19 00:46 | PC.NURSE ---
Pt medically cleared. Intake info sent to [facility]. Pt spoke with intake. Facility will call back after reviewing intake paperwork.
[2022-04-19] MEDS: ONDANSETRON 4 MG ODT SL (05:33)
--- NOTE | 2022-04-19 05:37 | PC.NURSE ---
pt c/o nausea, Dr Whitman informed and new orders noted, medication obtained for pt, pt vomited about 400 ml of fluid, medication given
--- NOTE | 2022-04-19 06:54 | PC.NURSE ---
Follow up with [facility] @ [facility] has not yet reviewed Pt info. Faxed current DR note to [phone] Facility will call back after review
[2022-04-19 09:40] VITALS: BP 113/72; PULSE 73; RESP 16; TEMP 37.1; O2SAT 100
[2022-04-19] MEDS: NICOTINE 21 MG PATCH TOP (10:04)
[2022-04-19] MEDS: chlordiazePOXIDE 25 MG CAPSULE 50 MG PO ×2 (12:37→18:16)
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
--- NOTE | 2022-04-19 15:19 | CM.SWNOTE ---
Addendum entered by ALEXIA Tang 04/19/22 17:14: BRIAN received a call back from Maria Elena at [facility], who reported that they can accept pt. Maria Elena reports that a process planner will be assigned to pt when he arrives and they can potentially help him get into a director long term care residential program, if he is eligible. Maria Elena reported that the accepting MD is Dr. Bhat and RN Report goes to [phone]. BRIAN asked [facility] to arrange S ambulance and the earliest available time was 9pm. BRIAN informed [facility] that pt will be picked up at 9pm. BRIAN informed pt of acceptance. ALEXIA Tang Addendum entered by ALEXIA Tang 04/19/22 16:04: BRIAN called [facility] [phone] and was informed that the correct fax is [phone]. BRIAN was also informed that voluntary admissions are all screened by Reginald Dash, who will not be available until tomorrow at 7:30am. BRIAN was advised to call back tomorrow morning to check on referral. BRIAN called [facility] and was informed that they are currently reviewing the referral and will get back to BRIAN kane. ALEXIA Tang Original Note: ED BRIAN Note BRIAN faxed referrals to [facility], [facility], and [facility] for consideration for inpatient detox. ALEXIA Tang
--- NOTE | 2022-04-19 20:14 | PC.NURSE ---
Pt not in [facility]. According to front end ui developer registration, pt left and then came back recently. Charge aware.
--- NOTE | 2022-04-19 20:20 | PC.NURSE ---
Checked hallways, and outer waiting area. Pt not found. Cell phone called with no answer. Security checking parking lot.
== END 2022-04-19 20:15 | disposition left against medical advice (07) ==
PROVIDERS: Emergency Medicine; Emergency Provider Emergency Medicine; Family Provider Family Medicine
DX: F19.10 Other psychoactive substance abuse, uncomplicated (principal); Z20.822 Contact with and (suspected) exposure to COVID-19
CPT/HCPCS: 36415; 80053; 80305; 80320; 80329; 83690; 85025; 86592; 87635; 99283; C9803; G0480

== ENCOUNTER 2022-04-26 22:17 | Emergency (ER) | payer OTHER, MEDICAID, SELFPAY ==
[2022-04-26] VITALS (16 sets, daily range): BP systolic 81–136; BP diastolic 40–106; PULSE 100–139; RESP 11–41; TEMP 36.8; O2SAT 92–99
--- NOTE | 2022-04-26 22:21 | DI.RAD.S_ITS ---
PROCEDURE: XR CHEST 1V INDICATIONS: unresponsive TECHNIQUE: One view of the chest was acquired. COMPARISON: [facility], , CHEST 2 VIEW, 12/04/2016, 16:47. FINDINGS: Surgical changes and devices: None. Lungs and pleura: Lungs are clear. No pleural effusions or pneumothorax. Mediastinum: Mediastinal contours appear normal. Heart size is normal. Bones and chest wall: No suspicious bony lesions. Overlying soft tissues appear unremarkable. IMPRESSION: 1. No acute cardiopulmonary disease. Dictated by: Reginald Ohara M.D. on 04/26/2022 at 23:11 Approved by: Reginald Ohara M.D. on 04/26/2022 at 23:11
[2022-04-26] MEDS: SODIUM CHLORIDE 0.9% 1,000 ML 1000 ML IV (22:37)
[2022-04-26] MEDS: ONDANSETRON 4 MG/2 ML INJ IV (22:37)
[2022-04-26 22:49] LABS: Add Manual Diff / Slide Review NO; Basophils Absolute Auto 100 /uL (0-100); Basophils Percent Auto 0.6 % (0-2); Eosinophils Absolute Auto 400 /uL (0-450); Hemoglobin 14.5 g/dL (13.5-17.5); Lymphocytes Absolute Auto 2800 /uL (1100-4500); Lymphocytes Percent Auto 31.5 % (25-40); Mean Corpuscular HGB Conc 33.7 % (30-36); Mean Corpuscular Hemoglobin 30.1 PG (26-34); Mean Corpuscular Volume 89.2 fL (80-100); Monocytes Absolute Auto 200 /uL (0-900); Monocytes Percent Auto 2.5 % (3-14); Neutrophils Absolute Auto 5400 /uL (1500-7000); Neutrophils Percent Auto 60.4 % (50-75); Platelet Count 340 X10^3/uL (150-400); Red Blood Cell Count 4.82 X10^6/uL (4.5-5.9); White Blood Cell Count 8.9 X10^3/uL (4.5-11.0)
[2022-04-26 22:58] LABS: Alanine Aminotransferase 35 IU/L (<50); Albumin 4.4 g/dL (3.5-5.0); Albumin Globulin Ratio 1.3 (1.0-2.8); Alkaline Phosphatase 64 U/L (38-126); Aspartate Aminotransferase 25 IU/L (17-59); Bilirubin Total 0.3 mg/dL (0.2-1.3); Bilirubin Unconjugated 0.4 mg/dL (0.0-1.1); Blood Urea Nitrogen 20 mg/dL (9-20); Calcium 8.6 mg/dL (8.4-10.2); Carbon Dioxide 23 mmol/L (22-32); Chloride 97 mmol/L (98-107); Estimated Glomerular Filt Rate > 60 mL/min (>60); Ethanol (ETOH) < 10 mg/dL; Globulin 3.3 g/dL (1.7-4.1); Glucose 291 mg/dL (70-100); HEMOLYSIS 15 (0-50); Lactate (Lactic Acid) 6.2 mmol/L (0.7-2.1); Potassium 3.9 mmol/L (3.4-5.1); Sodium 136 mmol/L (137-145); Total Protein 7.7 g/dL (6.3-8.2)
--- NOTE | 2022-04-26 23:06 | PC.NURSE ---
Pt arrived from EMS with vomit in bag and down shirt, removed shirt and cleaned pt, suction at bedside and utilized. Seizure pads applied to bed.
[2022-04-26] MEDS: ACETYLCYSTEINE IV (23:16)
[2022-04-26] MEDS: WATER IV (23:16)
[2022-04-26] MEDS: DEXTROSE 5% IV (23:16)
[2022-04-26 23:23] LABS: Procalcitonin 0.04 ng/mL (<0.5)
[2022-04-26 23:31] LABS: Acetaminophen < 10 ug/mL (10-30); Salicylate < 1.0 mg/dL (<20)
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
--- NOTE | 2022-04-26 23:47 | PC.NURSE ---
Pt states he is currently homeless and drifting. Denies thoughts of harming himself and states he was not intending to harm himself tonight. Pt states when I'm tired I like to take them and they make me feel happy. Pt states he took 3-4 Percocet Blue, reports they may have had Fentanyl in them, states he crushed them up and snorted them and that is the last thing he remembers.
[2022-04-26 23:53] LABS: UR Morphine/Opiate cutoff 300 Negative (Negative); Ur Creatinine 20 (Normal); Ur Specific Gravity >1.030 (Normal); Urine Amphetamines Negative (Negative); Urine Barbiturates Negative (Negative); Urine Benzodiazepines Positive (Negative); Urine Cocaine Negative (Negative); Urine MDMA Negative (Negative); Urine Methadone Negative (Negative); Urine Methamphetamines Negative (Negative); Urine Oxycodone Negative (Negative); Urine Phencyclidine Negative (Negative); Urine Tetrahydrocannabinol Positive (Negative); Urine Tricyclic Antidepressant Negative (Negative); Urine pH 5 (Normal)
[2022-04-27] VITALS (42 sets, daily range): BP systolic 80–108; BP diastolic 46–65; PULSE 51–75; RESP 9–24; O2SAT 94–98
--- NOTE | 2022-04-27 00:04 | PC.NURSE ---
Contacted Po[facility] Center.
--- NOTE | 2022-04-27 00:36 | ED.OVERDOSE ---
HPI - Overdose <Guido Bourne DO - Last Filed: 04/28/22 02:43> General Chief Complaint: Toxicology Problem Stated Complaint: overdose Time Seen by Provider: 04/26/22 22:19 Source: patient and EMS Mode of arrival: EMS History of Present Illness HPI Narrative: 22M smoker with extensive drug history presents by EMS for overdose after snorting 3 [id number]. EMS found him cyanotic and unresponsive. He did not respond to multiple doses of intranasal Narcan but an IV was placed and after given 4 mg through the IV he began guarding his airway. He denies any suicidal or homicidal ideations. He denies any other substances. He has been seen here previously for drug abuse and had previously been evaluated for possible placement at a detox or rehab facility but left just prior to transport. Related Data Previous Rx's Medication Instructions Recorded albuterol sulfate 90 mcg/actuation 2 puff INH Q4HP PRN #2 inhalations 01/26/17 aerosol inhaler (Proventil HFA) adapalene 0.1 % topical cream 1 miguel angel topical HS ##15 08/17/17 atomoxetine 25 mg capsule 25 mg PO QDAY #30 caps 08/17/17 (Strattera) buspirone 15 mg tablet 15 mg PO BID #60 tabs 08/17/17 sertraline 100 mg tablet (Zoloft) 100 mg PO QDAY #30 tabs 08/17/17 cetirizine 10 mg tablet 10 mg PO QDAY #30 tabs 02/07/18 erythromycin 5 mg/gram (0.5 %) eye 0.5 inch EYE-RIGHT BID #1 g 07/25/19 ointment ondansetron 4 mg disintegrating 4 mg PO BID-TID PRN nausea and 07/25/19 tablet vomiting #7 tabs ondansetron 4 mg disintegrating 4 mg PO BID-TID PRN nausea and 09/14/19 tablet vomiting #10 tabs azithromycin 250 mg tablet See Rx Instructions PO .COMPLEX #6 10/20/21 (Zithromax Z-Evert) tabs Allergies Allergy/AdvReac Type Severity Reaction Status Date / Time amoxicillin [AMOXICILLIN] Allergy Mild WELTS Verified 02/22/22 12:18 Review of Systems <DO Winifred Garibay Last Filed: 04/28/22 02:43> Review of Systems Narrative: GENERAL: See HPI. HEENT: Denies sinus pain, ear pain, sore throat, difficulty swallowing, dizziness. RESPIRATORY: See HPI CARDIOVASCULAR: Denies chest pain, palpitations, orthopnea, edema, GASTROINTESTINAL: Denies nausea, vomiting, abdominal pain, diarrhea, constipation, melena. : Denies dysuria, frequency, incontinence, hematuria, urinary retention. MUSCULOSKELETAL: denies weakness, joint pain, or bony pain SKIN: Denies rash, skin lesions, or other NEUROLOGIC: Denies weakness, headache, numbness, change in speech, confusion, seizures, incoordination. PSYCHIATRIC: No concerning psychosocial issues. 12 point review of systems is negative except for those stated above Patient History <Guido Bourne DO - Last Filed: 04/28/22 02:43> Medical History ADHD Asthma Benzodiazepine abuse Bradycardia Conduct disorder (06/11/14) Medical clearance for incarceration Polydrug abuse Self-harming behavior SUICIDAL IDEATIONS Syncope Social History Smoking Status: Current every day smoker substance use type: marijuana Smoking Status: Current every day smoker tobacco type: cigarettes alcohol intake frequency: 3 or more drinks per day Alcohol type: beer Substance Use Type: former substance user, marijuana, crack/cocaine, amphetamines, methamphetamine, prescription drug and other Exam <Guido Bourne DO - Last Filed: 04/28/22 02:43> Narrative Exam Narrative: GENERAL: [22] year old patient appears stated age. Well-developed patient, in moderate distress, somnolent but arousable, guarding his airway and managing secretions HEAD: Atraumatic. Normocephalic. EYES: Pupils equal round and reactive. Extraocular motions intact. No scleral icterus. No injection or drainage. ENT: Nose without bleeding, purulent drainage. Throat without erythema, tonsillar hypertrophy or exudate. Airway patent. NECK: Trachea midline. Non tender CARDIOVASCULAR: Regular rate and rhythm without murmurs, gallops, or rubs. RESPIRATORY: Clear to auscultation. Breath sounds equal bilaterally. No wheezes, rales, or rhonchi. GASTROINTESTINAL: Abdomen soft, non-tender, nondistended. EXTREMITIES: No edema or joint tenderness. BACK: Nontender without deformity or crepitance. No flank tenderness. NEURO: AOx3. SKIN: No rash or erythema of visible areas Initial Vital Signs Initial Vital Signs: Vital Signs Pulse Rate 139 H 04/26/22 22:26 Respiratory Rate 41 H 04/26/22 22:26 Pulse Oximetry 97 04/26/22 22:26 <Shashank Whitman DO - Last Filed: 04/27/22 12:23> Initial Vital Signs Initial Vital Signs: Vital Signs Pulse Rate 139 H 04/26/22 22:26 Respiratory Rate 41 H 04/26/22 22:26 Pulse Oximetry 97 04/26/22 22:26 Course <Guido Bourne, DO - Last Filed: 04/28/22 02:43> Orders Ordered: Discontinued Medications Sodium Chloride (Normal Saline 0.9%) 1,000 mls @ 1,000 mls/hr IV BOLUS ONE Stop: 04/26/22 23:18 Last Infusion: 04/26/22 23:30 Dose: 0 mls/hr Documented By: Admin: 04/26/22 22:37 Dose: 1,000 mls/hr Documented By: AT Acetylcysteine 12 g/ Dextrose 260 mls @ 260 mls/hr IV NOW ONE Stop: 04/26/22 23:03 Last Infusion: 04/27/22 05:47 Dose: 0 mls/hr Documented By: Admin: 04/26/22 23:16 Dose: 260 mls/hr Documented By: AT Acetylcysteine 4 g/ Dextrose 520 mls @ 130 mls/hr IV NOW ONE Stop: 04/27/22 00:03 Last Infusion: 04/27/22 05:47 Dose: 0 mls/hr Documented By: Admin: 04/27/22 00:46 Dose: 130 mls/hr Documented By: GC Acetylcysteine 8 g/ Dextrose 1,040 mls @ 65 mls/hr IV NOW ONE Stop: 04/27/22 04:03 Last Admin: 04/27/22 05:50 Dose: Not Given Documented By: GC Naloxone HCl (Naloxone 1 Mg/Ml Syringe) 2 mg IV PRN PRN PRN Reason: Opiate Reversal Ondansetron HCl (Ondansetron 4 Mg/2 Ml Inj) 4 mg IV NOW ONE Stop: 04/26/22 22:20 Last Admin: 04/26/22 22:37 Dose: 4 mg Documented By: AT Vital Signs Vital signs: Vital Signs - 8 hr 04/27/22 08:05 04/27/22 08:05 04/27/22 08:10 Pulse Rate 59 L 60 Respiratory Rate 9 L 11 L Blood Pressure 86/51 L Pulse Oximetry Oxygen Delivery Method 04/27/22 08:10 04/27/22 08:15 04/27/22 08:15 Pulse Rate 63 Respiratory Rate 11 L Blood Pressure 88/52 L 84/49 L Pulse Oximetry Oxygen Delivery Method 04/27/22 08:20 04/27/22 08:20 04/27/22 08:25 Pulse Rate 75 66 Respiratory Rate 11 L 19 Blood Pressure 89/53 L Pulse Oximetry Oxygen Delivery Method 04/27/22 08:25 04/27/22 08:30 04/27/22 08:30 Pulse Rate 63 Respiratory Rate 14 Blood Pressure 89/52 L 89/50 L Pulse Oximetry Oxygen Delivery Method 04/27/22 08:35 04/27/22 08:35 04/27/22 08:40 Pulse Rate 62 57 L Respiratory Rate 16 11 L Blood Pressure 86/51 L Pulse Oximetry Oxygen Delivery Method 04/27/22 08:40 04/27/22 08:45 04/27/22 08:45 Pulse Rate 57 L Respiratory Rate 13 Blood Pressure 87/53 L 88/51 L Pulse Oximetry Oxygen Delivery Method 04/27/22 08:50 04/27/22 08:50 04/27/22 08:55 Pulse Rate 53 L Respiratory Rate 11 L Blood Pressure 90/50 L 87/54 L Pulse Oximetry Oxygen Delivery Method 04/27/22 08:55 04/27/22 09:00 04/27/22 09:00 Pulse Rate 54 L 56 L Respiratory Rate 10 L 10 L Blood Pressure 95/52 L Pulse Oximetry Oxygen Delivery Method 04/27/22 09:05 04/27/22 09:05 04/27/22 09:10 Pulse Rate 55 L 56 L Respiratory Rate 10 L 9 L Blood Pressure 95/52 L Pulse Oximetry Oxygen Delivery Method 04/27/22 09:10 04/27/22 09:15 04/27/22 09:15 Pulse Rate 53 L Respiratory Rate 10 L Blood Pressure 96/52 L 89/55 L Pulse Oximetry Oxygen Delivery Method 04/27/22 09:20 04/27/22 09:20 04/27/22 09:25 Pulse Rate 53 L 55 L Respiratory Rate 13 10 L Blood Pressure 87/50 L Pulse Oximetry Oxygen Delivery Method 04/27/22 09:25 04/27/22 09:30 04/27/22 09:30 Pulse Rate 56 L Respiratory Rate 9 L Blood Pressure 89/53 L 95/51 L Pulse Oximetry Oxygen Delivery Method 04/27/22 09:35 04/27/22 09:35 04/27/22 09:40 Pulse Rate 55 L 54 L Respiratory Rate 11 L 16 Blood Pressure 91/55 L Pulse Oximetry Oxygen Delivery Method 04/27/22 09:40 04/27/22 09:45 04/27/22 09:45 Pulse Rate 53 L Respiratory Rate 11 L Blood Pressure 87/49 L 89/51 L Pulse Oximetry Oxygen Delivery Method 04/27/22 09:50 04/27/22 09:50 04/27/22 09:55 Pulse Rate 56 L 58 L Respiratory Rate 13 12 Blood Pressure 92/55 L Pulse Oximetry Oxygen Delivery Method 04/27/22 09:55 04/27/22 10:00 04/27/22 10:00 Pulse Rate 56 L Respiratory Rate 16 Blood Pressure 94/51 L 88/53 L Pulse Oximetry Oxygen Delivery Method 04/27/22 10:05 04/27/22 10:05 04/27/22 11:31 Pulse Rate 55 L 63 Respiratory Rate 13 16 Blood Pressure 83/51 L 108/65 Pulse Oximetry 98 Oxygen Delivery Method Room Air 04/27/22 10:10 04/27/22 10:10 04/27/22 10:15 Pulse Rate 56 L Respiratory Rate 12 Blood Pressure 83/53 L 87/55 L Pulse Oximetry Oxygen Delivery Method 04/27/22 10:15 04/27/22 10:20 04/27/22 10:20 Pulse Rate 56 L 56 L Respiratory Rate 16 14 Blood Pressure 87/50 L Pulse Oximetry Oxygen Delivery Method 04/27/22 10:25 04/27/22 10:25 04/27/22 10:30 Pulse Rate 52 L Respiratory Rate 10 L Blood Pressure 102/46 L 80/50 L Pulse Oximetry Oxygen Delivery Method 04/27/22 10:30 04/27/22 10:33 04/27/22 10:33 Pulse Rate 59 L 52 L Respiratory Rate 19 9 L Blood Pressure 84/51 L Pulse Oximetry Oxygen Delivery Method 04/27/22 10:35 04/27/22 10:35 04/27/22 10:40 Pulse Rate 52 L Respiratory Rate 9 L Blood Pressure 86/53 L 87/53 L Pulse Oximetry Oxygen Delivery Method 04/27/22 10:40 04/27/22 10:46 04/27/22 10:50 Pulse Rate 51 L 66 63 Respiratory Rate 14 20 Blood Pressure Pulse Oximetry 94 Oxygen Delivery Method 04/27/22 10:55 04/27/22 11:00 04/27/22 11:05 Pulse Rate 60 59 L 61 Respiratory Rate 14 16 13 Blood Pressure Pulse Oximetry 95 98 97 Oxygen Delivery Method 04/27/22 11:10 04/27/22 11:15 04/27/22 11:20 Pulse Rate 67 58 L 65 Respiratory Rate 14 16 24 Blood Pressure Pulse Oximetry 97 96 96 Oxygen Delivery Method <Shashank Whitman DO - Last Filed: 04/27/22 12:23> Orders Ordered: Discontinued Medications Sodium Chloride (Normal Saline 0.9%) 1,000 mls @ 1,000 mls/hr IV BOLUS ONE Stop: 04/26/22 23:18 Last Infusion: 04/26/22 23:30 Dose: 0 mls/hr Documented By: Admin: 04/26/22 22:37 Dose: 1,000 mls/hr Documented By: AT Acetylcysteine 12 g/ Dextrose 260 mls @ 260 mls/hr IV NOW ONE Stop: 04/26/22 23:03 Last Infusion: 04/27/22 05:47 Dose: 0 mls/hr Documented By: Admin: 04/26/22 23:16 Dose: 260 mls/hr Documented By: AT Acetylcysteine 4 g/ Dextrose 520 mls @ 130 mls/hr IV NOW ONE Stop: 04/27/22 00:03 Last Infusion: 04/27/22 05:47 Dose: 0 mls/hr Documented By: Admin: 04/27/22 00:46 Dose: 130 mls/hr Documented By: GC Acetylcysteine 8 g/ Dextrose 1,040 mls @ 65 mls/hr IV NOW ONE Stop: 04/27/22 04:03 Last Admin: 04/27/22 05:50 Dose: Not Given Documented By: PHILLIP Naloxone HCl (Naloxone 1 Mg/Ml Syringe) 2 mg IV PRN PRN PRN Reason: Opiate Reversal Ondansetron HCl (Ondansetron 4 Mg/2 Ml Inj) 4 mg IV NOW ONE Stop: 04/26/22 22:20 Last Admin: 04/26/22 22:37 Dose: 4 mg Documented By: AT Vital Signs Vital signs: Vital Signs - 8 hr 04/27/22 08:05 04/27/22 08:05 04/27/22 08:10 Pulse Rate 59 L 60 Respiratory Rate 9 L 11 L Blood Pressure 86/51 L Pulse Oximetry Oxygen Delivery Method 04/27/22 08:10 04/27/22 08:15 04/27/22 08:15 Pulse Rate 63 Respiratory Rate 11 L Blood Pressure 88/52 L 84/49 L Pulse Oximetry Oxygen Delivery Method 04/27/22 08:20 04/27/22 08:20 04/27/22 08:25 Pulse Rate 75 66 Respiratory Rate 11 L 19 Blood Pressure 89/53 L Pulse Oximetry Oxygen Delivery Method 04/27/22 08:25 04/27/22 08:30 04/27/22 08:30 Pulse Rate 63 Respiratory Rate 14 Blood Pressure 89/52 L 89/50 L Pulse Oximetry Oxygen Delivery Method 04/27/22 08:35 04/27/22 08:35 04/27/22 08:40 Pulse Rate 62 57 L Respiratory Rate 16 11 L Blood Pressure 86/51 L Pulse Oximetry Oxygen Delivery Method 04/27/22 08:40 04/27/22 08:45 04/27/22 08:45 Pulse Rate 57 L Respiratory Rate 13 Blood Pressure 87/53 L 88/51 L Pulse Oximetry Oxygen Delivery Method 04/27/22 08:50 04/27/22 08:50 04/27/22 08:55 Pulse Rate 53 L Respiratory Rate 11 L Blood Pressure 90/50 L 87/54 L Pulse Oximetry Oxygen Delivery Method 04/27/22 08:55 04/27/22 09:00 04/27/22 09:00 Pulse Rate 54 L 56 L Respiratory Rate 10 L 10 L Blood Pressure 95/52 L Pulse Oximetry Oxygen Delivery Method 04/27/22 09:05 04/27/22 09:05 04/27/22 09:10 Pulse Rate 55 L 56 L Respiratory Rate 10 L 9 L Blood Pressure 95/52 L Pulse Oximetry Oxygen Delivery Method 04/27/22 09:10 04/27/22 09:15 04/27/22 09:15 Pulse Rate 53 L Respiratory Rate 10 L Blood Pressure 96/52 L 89/55 L Pulse Oximetry Oxygen Delivery Method 04/27/22 09:20 04/27/22 09:20 04/27/22 09:25 Pulse Rate 53 L 55 L Respiratory Rate 13 10 L Blood Pressure 87/50 L Pulse Oximetry Oxygen Delivery Method 04/27/22 09:25 04/27/22 09:30 04/27/22 09:30 Pulse Rate 56 L Respiratory Rate 9 L Blood Pressure 89/53 L 95/51 L Pulse Oximetry Oxygen Delivery Method 04/27/22 09:35 04/27/22 09:35 04/27/22 09:40 Pulse Rate 55 L 54 L Respiratory Rate 11 L 16 Blood Pressure 91/55 L Pulse Oximetry Oxygen Delivery Method 04/27/22 09:40 04/27/22 09:45 04/27/22 09:45 Pulse Rate 53 L Respiratory Rate 11 L Blood Pressure 87/49 L 89/51 L Pulse Oximetry Oxygen Delivery Method 04/27/22 09:50 04/27/22 09:50 04/27/22 09:55 Pulse Rate 56 L 58 L Respiratory Rate 13 12 Blood Pressure 92/55 L Pulse Oximetry Oxygen Delivery Method 04/27/22 09:55 04/27/22 10:00 04/27/22 10:00 Pulse Rate 56 L Respiratory Rate 16 Blood Pressure 94/51 L 88/53 L Pulse Oximetry Oxygen Delivery Method 04/27/22 10:05 04/27/22 10:05 04/27/22 11:31 Pulse Rate 55 L 63 Respiratory Rate 13 16 Blood Pressure 83/51 L 108/65 Pulse Oximetry 98 Oxygen Delivery Method Room Air 04/27/22 10:10 04/27/22 10:10 04/27/22 10:15 Pulse Rate 56 L Respiratory Rate 12 Blood Pressure 83/53 L 87/55 L Pulse Oximetry Oxygen Delivery Method 04/27/22 10:15 04/27/22 10:20 04/27/22 10:20 Pulse Rate 56 L 56 L Respiratory Rate 16 14 Blood Pressure 87/50 L Pulse Oximetry Oxygen Delivery Method 04/27/22 10:25 04/27/22 10:25 04/27/22 10:30 Pulse Rate 52 L Respiratory Rate 10 L Blood Pressure 102/46 L 80/50 L Pulse Oximetry Oxygen Delivery Method 04/27/22 10:30 04/27/22 10:33 04/27/22 10:33 Pulse Rate 59 L 52 L Respiratory Rate 19 9 L Blood Pressure 84/51 L Pulse Oximetry Oxygen Delivery Method 04/27/22 10:35 04/27/22 10:35 04/27/22 10:40 Pulse Rate 52 L Respiratory Rate 9 L Blood Pressure 86/53 L 87/53 L Pulse Oximetry Oxygen Delivery Method 04/27/22 10:40 04/27/22 10:46 04/27/22 10:50 Pulse Rate 51 L 66 63 Respiratory Rate 14 20 Blood Pressure Pulse Oximetry 94 Oxygen Delivery Method 04/27/22 10:55 04/27/22 11:00 04/27/22 11:05 Pulse Rate 60 59 L 61 Respiratory Rate 14 16 13 Blood Pressure Pulse Oximetry 95 98 97 Oxygen Delivery Method 04/27/22 11:10 04/27/22 11:15 04/27/22 11:20 Pulse Rate 67 58 L 65 Respiratory Rate 14 16 24 Blood Pressure Pulse Oximetry 97 96 96 Oxygen Delivery Method MDM - Overdose <Guido Bourne, DO - Last Filed: 04/28/22 02:43> Lab Data Result diagrams: 04/26/22 22:38 04/26/22 22:38 Labs: Lab Results 04/26/22 04/26/22 04/26/22 Range/Units 22:30 22:38 22:38 WBC 8.9 (4.5-11.0) X10^3/uL RBC 4.82 (4.5-5.9) X10^6/uL Hgb 14.5 (13.5-17.5) g/dL Hct 43.0 (41-53) % MCV 89.2 (80-100) fL MCH 30.1 (26-34) PG MCHC 33.7 (30-36) % RDW 12.0 (11.6-14.8) % Plt Count 340 (150-400) X10^3/uL Neut % (Auto) 60.4 (50-75) % Lymph % (Auto) 31.5 (25-40) % Jerome % (Auto) 2.5 L (3-14) % Eos % (Auto) 5.0 H (2-4) % Baso % (Auto) 0.6 (0-2) % Neut # (Auto) 5400 (0993-2553) /uL Lymph # (Auto) 2800 (9173-4395) /uL Jerome # (Auto) 200 (0-900) /uL Eos # (Auto) 400 (0-450) /uL Baso # (Auto) 100 (0-100) /uL Sodium (137-145) mmol/L Potassium (3.4-5.1) mmol/L Chloride (98-107) mmol/L Carbon Dioxide (22-32) mmol/L BUN (9-20) mg/dL Creatinine (0.66-1.25) mg/dL Estimated GFR (>60) mL/min BUN/Creatinine Ratio (6-22) Glucose (70-100) mg/dL Lactate (0.7-2.1) mmol/L Calcium (8.4-10.2) mg/dL Total Bilirubin (0.2-1.3) mg/dL Conjugated Bilirubin (0.0-0.3) md/dL Unconjugated Bilirubin (0.0-1.1) mg/dL AST (17-59) IU/L ALT (<50) IU/L Alkaline Phosphatase (38-126) U/L Total Protein (6.3-8.2) g/dL Albumin (3.5-5.0) g/dL Globulin (1.7-4.1) g/dL Albumin/Globulin Ratio (1.0-2.8) Procalcitonin 0.04 (<0.5) ng/mL Salicylates (<20) mg/dL U Opiates 300ng/mL cut Negative (Negative) Ur Oxycodone Screen Negative (Negative) Urine Methadone Screen Negative (Negative) Acetaminophen (10-30) ug/mL Ur Barbiturates Screen Negative (Negative) U Tricyclic Antidepress Negative (Negative) Ur Phencyclidine Scrn Negative (Negative) Ur Amphetamines Screen Negative (Negative) U Methamphetamines Scrn Negative (Negative) Ur MDMA Scrn (Ecstasy) Negative (Negative) U Benzodiazepines Scrn Positive H (Negative) Urine Cocaine Screen Negative (Negative) U Marijuana (THC) Screen Positive H (Negative) Ethyl Alcohol ( - 10) mg/dL 04/26/22 04/26/22 04/27/22 Range/Units 22:38 22:38 02:30 WBC (4.5-11.0) X10^3/uL RBC (4.5-5.9) X10^6/uL Hgb (13.5-17.5) g/dL Hct (41-53) % MCV (80-100) fL MCH (26-34) PG MCHC (30-36) % RDW (11.6-14.8) % Plt Count (150-400) X10^3/uL Neut % (Auto) (50-75) % Lymph % (Auto) (25-40) % Jerome % (Auto) (3-14) % Eos % (Auto) (2-4) % Baso % (Auto) (0-2) % Neut # (Auto) (4631-1259) /uL Lymph # (Auto) (0340-1868) /uL Jerome # (Auto) (0-900) /uL Eos # (Auto) (0-450) /uL Baso # (Auto) (0-100) /uL Sodium 136 L (137-145) mmol/L Potassium 3.9 (3.4-5.1) mmol/L Chloride 97 L (98-107) mmol/L Carbon Dioxide 23 (22-32) mmol/L BUN 20 (9-20) mg/dL Creatinine 1.11 (0.66-1.25) mg/dL Estimated GFR > 60 (>60) mL/min BUN/Creatinine Ratio 18.0 (6-22) Glucose 291 H D (70-100) mg/dL Lactate 6.2 H* 0.8 (0.7-2.1) mmol/L Calcium 8.6 (8.4-10.2) mg/dL Total Bilirubin 0.3 (0.2-1.3) mg/dL Conjugated Bilirubin 0.0 (0.0-0.3) md/dL Unconjugated Bilirubin 0.4 (0.0-1.1) mg/dL AST 25 (17-59) IU/L ALT 35 (<50) IU/L Alkaline Phosphatase 64 (38-126) U/L Total Protein 7.7 (6.3-8.2) g/dL Albumin 4.4 (3.5-5.0) g/dL Globulin 3.3 (1.7-4.1) g/dL Albumin/Globulin Ratio 1.3 (1.0-2.8) Procalcitonin (<0.5) ng/mL Salicylates < 1.0 (<20) mg/dL U Opiates 300ng/mL cut (Negative) Ur Oxycodone Screen (Negative) Urine Methadone Screen (Negative) Acetaminophen < 10 (10-30) ug/mL Ur Barbiturates Screen (Negative) U Tricyclic Antidepress (Negative) Ur Phencyclidine Scrn (Negative) Ur Amphetamines Screen (Negative) U Methamphetamines Scrn (Negative) Ur MDMA Scrn (Ecstasy) (Negative) U Benzodiazepines Scrn (Negative) Urine Cocaine Screen (Negative) U Marijuana (THC) Screen (Negative) Ethyl Alcohol < 10 ( - 10) mg/dL 04/27/22 Range/Units 02:30 WBC (4.5-11.0) X10^3/uL RBC (4.5-5.9) X10^6/uL Hgb (13.5-17.5) g/dL Hct (41-53) % MCV (80-100) fL MCH (26-34) PG MCHC (30-36) % RDW (11.6-14.8) % Plt Count (150-400) X10^3/uL Neut % (Auto) (50-75) % Lymph % (Auto) (25-40) % Jerome % (Auto) (3-14) % Eos % (Auto) (2-4) % Baso % (Auto) (0-2) % Neut # (Auto) (3831-7846) /uL Lymph # (Auto) (4865-1032) /uL Jerome # (Auto) (0-900) /uL Eos # (Auto) (0-450) /uL Baso # (Auto) (0-100) /uL Sodium (137-145) mmol/L Potassium (3.4-5.1) mmol/L Chloride (98-107) mmol/L Carbon Dioxide (22-32) mmol/L BUN (9-20) mg/dL Creatinine (0.66-1.25) mg/dL Estimated GFR (>60) mL/min BUN/Creatinine Ratio (6-22) Glucose (70-100) mg/dL Lactate (0.7-2.1) mmol/L Calcium (8.4-10.2) mg/dL Total Bilirubin (0.2-1.3) mg/dL Conjugated Bilirubin (0.0-0.3) md/dL Unconjugated Bilirubin (0.0-1.1) mg/dL AST (17-59) IU/L ALT 32 (<50) IU/L Alkaline Phosphatase (38-126) U/L Total Protein (6.3-8.2) g/dL Albumin (3.5-5.0) g/dL Globulin (1.7-4.1) g/dL Albumin/Globulin Ratio (1.0-2.8) Procalcitonin (<0.5) ng/mL Salicylates (<20) mg/dL U Opiates 300ng/mL cut (Negative) Ur Oxycodone Screen (Negative) Urine Methadone Screen (Negative) Acetaminophen < 10 (10-30) ug/mL Ur Barbiturates Screen (Negative) U Tricyclic Antidepress (Negative) Ur Phencyclidine Scrn (Negative) Ur Amphetamines Screen (Negative) U Methamphetamines Scrn (Negative) Ur MDMA Scrn (Ecstasy) (Negative) U Benzodiazepines Scrn (Negative) Urine Cocaine Screen (Negative) U Marijuana (THC) Screen (Negative) Ethyl Alcohol ( - 10) mg/dL Urine Dip Bedside Urine Glucose 100 mg/dl Bedside Urine Bilirubin - Negative Bedside Urine Ketone - Negative Urine Specific Kellogg 1.015 Bedside Urine Occult Blood - Negative Bedside Urine pH 6.5 Bedside Urine Protein +++ 300 Bedside Urine Urobilinogen - Negative Bedside Urine Nitrite - Negative Bedside Urine Leukocytes - Negative Esterase MDM Narrative Medical decision making narrative: Patient greatly improved after EMS interventions. He has been observed well beyond the 4 hour point after ingestion and no repeat doses of Narcan needed, acetaminophen and LFTs unremarkable. Patient is medically cleared but requesting [employer] consult <Shashank Whitman DO - Last Filed: 04/27/22 12:23> Lab Data Labs: Lab Results 04/26/22 04/26/22 04/26/22 Range/Units 22:30 22:38 22:38 WBC 8.9 (4.5-11.0) X10^3/uL RBC 4.82 (4.5-5.9) X10^6/uL Hgb 14.5 (13.5-17.5) g/dL Hct 43.0 (41-53) % MCV 89.2 (80-100) fL MCH 30.1 (26-34) PG MCHC 33.7 (30-36) % RDW 12.0 (11.6-14.8) % Plt Count 340 (150-400) X10^3/uL Neut % (Auto) 60.4 (50-75) % Lymph % (Auto) 31.5 (25-40) % Jerome % (Auto) 2.5 L (3-14) % Eos % (Auto) 5.0 H (2-4) % Baso % (Auto) 0.6 (0-2) % Neut # (Auto) 5400 (5872-0147) /uL Lymph # (Auto) 2800 (7546-3161) /uL Jerome # (Auto) 200 (0-900) /uL Eos # (Auto) 400 (0-450) /uL Baso # (Auto) 100 (0-100) /uL Sodium (137-145) mmol/L Potassium (3.4-5.1) mmol/L Chloride (98-107) mmol/L Carbon Dioxide (22-32) mmol/L BUN (9-20) mg/dL Creatinine (0.66-1.25) mg/dL Estimated GFR (>60) mL/min BUN/Creatinine Ratio (6-22) Glucose (70-100) mg/dL Lactate (0.7-2.1) mmol/L Calcium (8.4-10.2) mg/dL Total Bilirubin (0.2-1.3) mg/dL Conjugated Bilirubin (0.0-0.3) md/dL Unconjugated Bilirubin (0.0-1.1) mg/dL AST (17-59) IU/L ALT (<50) IU/L Alkaline Phosphatase (38-126) U/L Total Protein (6.3-8.2) g/dL Albumin (3.5-5.0) g/dL Globulin (1.7-4.1) g/dL Albumin/Globulin Ratio (1.0-2.8) Procalcitonin 0.04 (<0.5) ng/mL Salicylates (<20) mg/dL U Opiates 300ng/mL cut Negative (Negative) Ur Oxycodone Screen Negative (Negative) Urine Methadone Screen Negative (Negative) Acetaminophen (10-30) ug/mL Ur Barbiturates Screen Negative (Negative) U Tricyclic Antidepress Negative (Negative) Ur Phencyclidine Scrn Negative (Negative) Ur Amphetamines Screen Negative (Negative) U Methamphetamines Scrn Negative (Negative) Ur MDMA Scrn (Ecstasy) Negative (Negative) U Benzodiazepines Scrn Positive H (Negative) Urine Cocaine Screen Negative (Negative) U Marijuana (THC) Screen Positive H (Negative) Ethyl Alcohol ( - 10) mg/dL 04/26/22 04/26/22 04/27/22 Range/Units 22:38 22:38 02:30 WBC (4.5-11.0) X10^3/uL RBC (4.5-5.9) X10^6/uL Hgb (13.5-17.5) g/dL Hct (41-53) % MCV (80-100) fL MCH (26-34) PG MCHC (30-36) % RDW (11.6-14.8) % Plt Count (150-400) X10^3/uL Neut % (Auto) (50-75) % Lymph % (Auto) (25-40) % Jerome % (Auto) (3-14) % Eos % (Auto) (2-4) % Baso % (Auto) (0-2) % Neut # (Auto) (9394-3444) /uL Lymph # (Auto) (6994-0116) /uL Jerome # (Auto) (0-900) /uL Eos # (Auto) (0-450) /uL Baso # (Auto) (0-100) /uL Sodium 136 L (137-145) mmol/L Potassium 3.9 (3.4-5.1) mmol/L Chloride 97 L (98-107) mmol/L Carbon Dioxide 23 (22-32) mmol/L BUN 20 (9-20) mg/dL Creatinine 1.11 (0.66-1.25) mg/dL Estimated GFR > 60 (>60) mL/min BUN/Creatinine Ratio 18.0 (6-22) Glucose 291 H D (70-100) mg/dL Lactate 6.2 H* 0.8 (0.7-2.1) mmol/L Calcium 8.6 (8.4-10.2) mg/dL Total Bilirubin 0.3 (0.2-1.3) mg/dL Conjugated Bilirubin 0.0 (0.0-0.3) md/dL Unconjugated Bilirubin 0.4 (0.0-1.1) mg/dL AST 25 (17-59) IU/L ALT 35 (<50) IU/L Alkaline Phosphatase 64 (38-126) U/L Total Protein 7.7 (6.3-8.2) g/dL Albumin 4.4 (3.5-5.0) g/dL Globulin 3.3 (1.7-4.1) g/dL Albumin/Globulin Ratio 1.3 (1.0-2.8) Procalcitonin (<0.5) ng/mL Salicylates < 1.0 (<20) mg/dL U Opiates 300ng/mL cut (Negative) Ur Oxycodone Screen (Negative) Urine Methadone Screen (Negative) Acetaminophen < 10 (10-30) ug/mL Ur Barbiturates Screen (Negative) U Tricyclic Antidepress (Negative) Ur Phencyclidine Scrn (Negative) Ur Amphetamines Screen (Negative) U Methamphetamines Scrn (Negative) Ur MDMA Scrn (Ecstasy) (Negative) U Benzodiazepines Scrn (Negative) Urine Cocaine Screen (Negative) U Marijuana (THC) Screen (Negative) Ethyl Alcohol < 10 ( - 10) mg/dL 04/27/22 Range/Units 02:30 WBC (4.5-11.0) X10^3/uL RBC (4.5-5.9) X10^6/uL Hgb (13.5-17.5) g/dL Hct (41-53) % MCV (80-100) fL MCH (26-34) PG MCHC (30-36) % RDW (11.6-14.8) % Plt Count (150-400) X10^3/uL Neut % (Auto) (50-75) % Lymph % (Auto) (25-40) % Jerome % (Auto) (3-14) % Eos % (Auto) (2-4) % Baso % (Auto) (0-2) % Neut # (Auto) (0010-9466) /uL Lymph # (Auto) ([id number]) /uL Jerome # (Auto) (0-900) /uL Eos # (Auto) (0-450) /uL Baso # (Auto) (0-100) /uL Sodium (137-145) mmol/L Potassium (3.4-5.1) mmol/L Chloride (98-107) mmol/L Carbon Dioxide (22-32) mmol/L BUN (9-20) mg/dL Creatinine (0.66-1.25) mg/dL Estimated GFR (>60) mL/min BUN/Creatinine Ratio (6-22) Glucose (70-100) mg/dL Lactate (0.7-2.1) mmol/L Calcium (8.4-10.2) mg/dL Total Bilirubin (0.2-1.3) mg/dL Conjugated Bilirubin (0.0-0.3) md/dL Unconjugated Bilirubin (0.0-1.1) mg/dL AST (17-59) IU/L ALT 32 (<50) IU/L Alkaline Phosphatase (38-126) U/L Total Protein (6.3-8.2) g/dL Albumin (3.5-5.0) g/dL Globulin (1.7-4.1) g/dL Albumin/Globulin Ratio (1.0-2.8) Procalcitonin (<0.5) ng/mL Salicylates (<20) mg/dL U Opiates 300ng/mL cut (Negative) Ur Oxycodone Screen (Negative) Urine Methadone Screen (Negative) Acetaminophen < 10 (10-30) ug/mL Ur Barbiturates Screen (Negative) U Tricyclic Antidepress (Negative) Ur Phencyclidine Scrn (Negative) Ur Amphetamines Screen (Negative) U Methamphetamines Scrn (Negative) Ur MDMA Scrn (Ecstasy) (Negative) U Benzodiazepines Scrn (Negative) Urine Cocaine Screen (Negative) U Marijuana (THC) Screen (Negative) Ethyl Alcohol ( - 10) mg/dL Urine Dip Bedside Urine Glucose 100 mg/dl Bedside Urine Bilirubin - Negative Bedside Urine Ketone - Negative Urine Specific [place] 1.015 Bedside Urine Occult Blood - Negative Bedside Urine pH 6.5 Bedside Urine Protein +++ 300 Bedside Urine Urobilinogen - Negative Bedside Urine Nitrite - Negative Bedside Urine Leukocytes - Negative Esterase MDM Narrative Medical decision making narrative: Patient greatly improved after EMS interventions. He has been observed well beyond the 4 hour point after ingestion and no repeat doses of Narcan needed, acetaminophen and LFTs unremarkable. Patient is medically cleared but requesting LEAD TRAINER consult Dr whitman: Received turned over. Reviewed patient's history and physical exam. Patient has been stable. He is alert oriented x3. GCS of 15. Is ambulatory. States he no longer wants to stay in the emergency department. He does not want to speak with social work. Offered him resources which he declined. He states he has been in rehab in the past and he will work towards doing that. Will discharge patient home. Naloxone at Discharge Patient criteria for naloxone at discharge: Other reason Discharge Plan Departure Patient Disposition: Home Clinical Impression: Substance Abuse Instructions: DI for Substance Use Disorder Activity Restrictions/Additional Instructions: I do recommend that you investigate rehab/detox. Continue all of your medications as directed. You can return to the emergency department for any new or worsening symptoms. Prescriptions: No Action albuterol sulfate [Proventil HFA] 90 MCG/PUFF HFA aerosol inhaler 2 puff INH Q4HP PRNQty: 2 1RF sertraline [Zoloft] 100 MG tablet 100 mg PO QDAY Qty: 30 12RF adapalene 0.1 % cream 1 miguel angel Topical HS Qty: 15 1RF buspirone 15 MG tablet 15 mg PO BID Qty: 60 3RF atomoxetine [Strattera] 25 MG capsule 25 mg PO QDAY Qty: 30 3RF cetirizine 10 mg tablet 10 mg PO QDAY Qty: 30 5RF erythromycin 5 mg/gram (0.5 %) ointment 0.5 inch EYE-RIGHT BID Qty: 1 0RF ondansetron 4 mg tablet,disintegrating 4 mg PO BID-TID PRN (Reason: nausea and vomiting) Qty: 7 0RF ondansetron 4 mg tablet,disintegrating 4 mg PO BID-TID PRN (Reason: nausea and vomiting) Qty: 10 0RF azithromycin [Zithromax Z-Evert] 250 mg tablet See Rx Instructions .ROUTE .COMPLEX Qty: 6 0RF Rx Instructions: For 250 mg dose pack: take 500 mg today (day 1), then 250 mg for 4 days (days 2-5) Referrals: Miscellaneous,Doctor, MD [Primary Care Provider] - Visit Report Forms: Patient Portal/API
[2022-04-27 00:42] LABS: Reflexed Lactate in 2 Hours Y
[2022-04-27] MEDS: ACETYLCYSTEINE IV (00:46)
[2022-04-27] MEDS: DEXTROSE 5% IV (00:46)
[2022-04-27] MEDS: WATER IV (00:46)
[2022-04-27 02:50] LABS: Acetaminophen < 10 ug/mL (10-30); Alanine Aminotransferase 32 IU/L (<50); Lactate 2HR (Lactic Acid Rflx) 0.8 mmol/L (0.7-2.1)
--- NOTE | 2022-04-27 11:50 | PC.NURSE ---
pt on the phone with girlfriend, he is calling his dad next for shoes and shirt.
--- NOTE | 2022-05-06 16:40 | PC.NURSE ---
pt calling to verify lab, lab will call lab core for results. [phone].
--- NOTE | 2022-05-06 17:18 | PC.NURSE ---
provided lab result to
== END 2022-04-27 12:18 | disposition home or self-care (01) ==
PROVIDERS: Emergency Medicine; Emergency Provider Emergency Medicine; Family Provider Family Medicine
DX: F19.10 Other psychoactive substance abuse, uncomplicated (principal)
CPT/HCPCS: 71045; 80053; 80076; 80305; 80320; 80329; 81003; 83605; 84145; 84460; 85025; 93005; 96365; 96366; 96375; 99284; G0480; J0132; J2405

== ENCOUNTER 2022-06-05 16:35 | Emergency (ER) | payer OTHER, MEDICAID, SELFPAY ==
[2022-06-05 16:44] VITALS: BP 125/84; PULSE 98; RESP 18; TEMP 36.6; O2SAT 98; BMI 26.6
== END 2022-06-05 20:10 | disposition left against medical advice (07) ==
PROVIDERS: Emergency Provider Emergency Medicine; Family Provider Family Medicine
CPT/HCPCS: 99281

== ENCOUNTER 2022-09-11 11:52 | Emergency (ER) | payer OTHER, MEDICAID, SELFPAY ==
[2022-09-11 11:57] VITALS: BP 108/70; PULSE 107; RESP 17; TEMP 36.4; O2SAT 97; BMI 24.1
--- NOTE | 2022-09-11 12:08 | ED.PSYCH ---
HPI - Psych General Chief Complaint: Psychiatric Symptoms Stated Complaint: per pt parents think he's crazy Time Seen by Provider: 09/11/22 12:07 Source: patient Mode of arrival: Ambulatory Related Data Allergies Allergy/AdvReac Type Severity Reaction Status Date / Time amoxicillin [AMOXICILLIN] Allergy Mild WELTS Verified 09/11/22 12:07 Patient History Medical History ADHD Asthma Benzodiazepine abuse Bradycardia Conduct disorder (06/11/14) Medical clearance for incarceration Polydrug abuse Self-harming behavior SUICIDAL IDEATIONS Syncope Social History Smoking Status: Current every day smoker substance use type: marijuana Smoking Status: Current every day smoker tobacco type: cigarettes alcohol intake frequency: other Alcohol type: beer Substance Use Type: marijuana Exam Initial Vital Signs Initial Vital Signs: Vital Signs Temperature 97.6 F 09/11/22 11:57 Pulse Rate 107 H 09/11/22 11:57 Respiratory Rate 17 09/11/22 11:57 Blood Pressure 108/70 09/11/22 11:57 Pulse Oximetry 97 09/11/22 11:57 Oxygen Delivery Method Room Air 09/11/22 11:57 Course Orders Ordered: ED Orders 09/11/22 12:05 Consult to TRAVEL REGISTERED NURSE PACU - Poker Supervisor Stat Vital Signs Vital signs: Vital Signs - 8 hr 09/11/22 11:57 Temperature 97.6 F Pulse Rate 107 H Respiratory Rate 17 Blood Pressure 108/70 Pulse Oximetry 97 Oxygen Delivery Method Room Air Discharge Plan Departure Referrals: Miscellaneous,Doctor, [Primary Care Provider] -
--- NOTE | 2022-09-11 13:13 | PC.NURSE ---
Notified provider concern that test strip for urine POC had over developed due to initial test failure as there was consistent positives in most clements. Charted dip stick POC and sent urine down for urinalysis and micro.
[2022-09-11 13:17] LABS: UR Morphine/Opiate cutoff 300 Negative (Negative); Ur Creatinine Normal (Normal); Ur Specific Gravity Normal (Normal); Urine Amphetamines Positive (Negative); Urine Barbiturates Negative (Negative); Urine Benzodiazepines Positive (Negative); Urine Cocaine Negative (Negative); Urine MDMA Negative (Negative); Urine Methadone Negative (Negative); Urine Methamphetamines Positive (Negative); Urine Oxycodone Negative (Negative); Urine Phencyclidine Negative (Negative); Urine Tetrahydrocannabinol Positive (Negative); Urine Tricyclic Antidepressant Negative (Negative); Urine pH Normal (Normal)
[2022-09-11 13:18] LABS: Appearance Urine UA CLEAR; Bilirubin Urine UA 1+ (NEGATIVE); Color Urine UA YELLOW; Glucose Urine UA NEGATIVE (Negative); Ketones Urine UA NEGATIVE (NEGATIVE); Leukocyte Esterase Urine UA 1+ (NEGATIVE); Nitrite Urine UA POSITIVE (Negative); Occult Blood Urine UA 3+ (Negative); Protein Urine UA 2+ (Negative); Specific Gravity Urine UA 1.025 (1.000-1.035); pH Urine UA 6.5 (4.5-8.0)
[2022-09-11 13:23] LABS: Bacteria Urine Few (2-10); Culture Indicated Urine Specimen Cultured; RBC Urine 30-100/HPF (0-5/HPF); Renal Epithelial Cells Urine 1-5/HPF (0-1/HPF); Squamous Epithelial Cell Urine 0-1 /HPF (0-5/HPF); Transitional Epi Cells Urine 1-5/HPF (0-5/HPF); WBC Urine 10-30/HPF (0-5/HPF)
[2022-09-11 13:25] LABS: Ictotest Urine Negative (Negative)
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
[2022-09-11] MEDS: AZITHROMYCIN 250 MG TABLET 2000 MG PO (14:04)
[2022-09-11] MEDS: GENTAMICIN 80 MG/2 ML VIAL 240 MG IM (14:05)
[2022-09-11 14:13] VITALS: BP 124/67; PULSE 83; RESP 16; O2SAT 98
[2022-09-11 16:25] LABS: Urine N gonorrhoeae NOT DETECTED
[2022-09-11 16:31] LABS: Urine Chlamydia NOT DETECTED
== END 2022-09-11 14:15 | disposition home or self-care (01) ==
PROVIDERS: Emergency Provider Student in an Organized Health Care Education/Training Program; Family Provider Family Medicine
DX: N39.0 Urinary tract infection, site not specified (principal); F41.9 Anxiety disorder, unspecified; F32.A Depression, unspecified
CPT/HCPCS: 80305; 81001; 81003; 87077; 87086; 87147; 87186; 87491; 87591; 96372; 99284

== ENCOUNTER 2022-11-11 21:32 | Emergency (ER) | payer OTHER, MEDICAID, SELFPAY ==
[2022-11-11 21:36] VITALS: BP 130/77; PULSE 120; RESP 18; TEMP 37.3; O2SAT 95
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
[2022-11-11 21:45] VITALS: BP 130/77; PULSE 116; TEMP 36.8; O2SAT 93
[2022-11-11 22:05] VITALS: BP 134/72; PULSE 112; RESP 18; TEMP 36.4; O2SAT 97
== END 2022-11-11 22:06 | disposition home or self-care (01) ==
PROVIDERS: Emergency Provider Emergency Medicine; Family Provider Family Medicine
DX: Z02.89 Encounter for other administrative examinations (principal); F19.10 Other psychoactive substance abuse, uncomplicated
CPT/HCPCS: 99281

== ENCOUNTER 2022-12-15 05:20 | Emergency (ER) | payer OTHER, MEDICAID, SELFPAY ==
[2022-12-15 05:23] VITALS: BP 105/57; PULSE 58; RESP 18; TEMP 36.6; O2SAT 100
[2022-12-15 05:30] VITALS: PULSE 60; O2SAT 100
[2022-12-15 05:31] VITALS: BP 98/54; PULSE 60; O2SAT 99
--- NOTE | 2022-12-15 05:34 | ED.MEDCLEAR ---
HPI - Medical Clearance General Chief complaint: Medical Clearance Stated complaint: fit for snf Time Seen by Provider: 12/15/22 05:32 Source: patient and police Mode of arrival: other Limitations: no limitations History of Present Illness HPI Narrative: Patient is a 22-year-old male brought in by police for evaluation of a fit for snf. Just prior to his arrest the patient states that he swallowed multiple pills of fentanyl and ?benzodiazepines? he would not specify more than this. He was minimally cooperative with the exam. Upon further questioning it turns out that he swallowed baggies of these pills and not the pills specifically. Related Information Previous Rx's Medication Instructions Recorded naloxone 4 mg/actuation nasal spray 4 mg intranasal Q2M PRN opioid 09/11/22 overdose #2 ea Allergies Allergy/AdvReac Type Severity Reaction Status Date / Time amoxicillin [AMOXICILLIN] Allergy Mild WELTS Verified 11/11/22 21:39 Review of Systems Cardiovascular Cardiovascular: Reports system reviewed and no additional complaints, except as documented Respiratory Respiratory: Reports system reviewed and no additional complaints, except as documented Gastrointestinal Gastrointestinal: Reports system reviewed and no additional complaints, except as documented Patient History Medical History ADHD Asthma Benzodiazepine abuse Bradycardia Conduct disorder (06/11/14) Medical clearance for incarceration Polydrug abuse Self-harming behavior SUICIDAL IDEATIONS Syncope Social History Smoking Status: Current every day smoker substance use type: marijuana Smoking Status: Current every day smoker tobacco type: cigarettes alcohol intake frequency: a few times a month Alcohol type: beer Substance Use Type: marijuana, heroin, amphetamines, tranquilizers, sedatives, opiates, club/mask designer drugs and methamphetamine Exam Initial Vital Signs Initial Vital Signs: Vital Signs Temperature 97.8 F 12/15/22 05:23 Pulse Rate 58 L 12/15/22 05:23 Respiratory Rate 18 12/15/22 05:23 Blood Pressure 105/57 L 12/15/22 05:23 Pulse Oximetry 100 12/15/22 05:23 Oxygen Delivery Method Room Air 12/15/22 05:23 Const General: cooperative and comfortable Resp Effort & Inspection: normal respiratory effort Cardio Rate: regular rate GI Inspection: non-distended MDM - Medical Clearance Imaging Data Abdominal x-ray: Radiologist's Impression: Nonspecific abdomen study. No significant abnormal abnormality identified MDM Narrative Medical decision making narrative: Patient was minimally cooperative with the exam. Observation here in the emergency department shows no signs of fentanyl or benzodiazepine effects. X-ray of his abdomen shows no radiopaque foreign bodies. Patient is found fit for confinement. bank secrecy act officer in discharge paperwork states that snf staff will need to search his stool for the next several days to ensure clearance of any ingested pills. Patient is found fit for confinement. Patient was released under the custody of police. Discharge Plan Departure Patient Disposition: Released, Other Clinical Impression: Medical clearance for incarceration Activity Restrictions/Additional Instructions: Mathieu is fit for incarceration. If he did in fact swallow bags of controlled substances I do recommend that his stool be checked for the next several days ensure clearance of the substances. Evaluation by emergency department as needed. Prescriptions: No Action naloxone 4 mg/actuation spray,non-aerosol 4 mg intranasal Q2M PRN (Reason: opioid overdose) Qty: 2 5RF Rx Instructions: spray 1 dose into ONE nostril; alternate nostrils w each dose until help arrives
--- NOTE | 2022-12-15 05:35 | DI.RAD.S_ITS ---
PROCEDURE: XR ABDOMEN 1V INDICATIONS: Swallowed bags of pills just prior to arrest TECHNIQUE: One view of the abdomen acquired. COMPARISON: [facility], , ABDOMEN 1 VIEW, 05/11/2016, 13:49. FINDINGS: Surgical changes and devices: None. Bowel: Bowel gas pattern is normal. Moderate colonic stool. No obstruction. Soft tissues: No suspicious abdominal calcifications. Visualized solid organ contours appear normal in size. No radiopaque foreign body. Bones: No suspicious bony lesions. IMPRESSION: Constipation without obstruction. No radiopaque foreign body. Dictated by: Marci Barnes M.D. on 12/15/2022 at 8:27 Approved by: Marci Barnes M.D. on 12/15/2022 at 8:28
[2022-12-15 06:00] VITALS: BP 110/68; PULSE 71; O2SAT 100
== END 2022-12-15 06:25 | disposition home or self-care (01) ==
PROVIDERS: Emergency Provider Emergency Medicine; Family Provider Family Medicine
DX: Z00.8 Encounter for other general examination (principal); T65.91XA Toxic effect of unspecified substance, accidental (unintentional), initial encounter
CPT/HCPCS: 74018; 99283

== ENCOUNTER 2023-06-25 15:14 | Emergency (ER) | payer OTHER, MEDICAID, SELFPAY ==
[2023-06-25] VITALS (12 sets, daily range): BP systolic 123–135; BP diastolic 70–92; PULSE 77–102; RESP 14–28; TEMP 36.7; O2SAT 91–100; BMI 23.5
--- NOTE | 2023-06-25 15:30 | ED_ITS ---
HPI - Overdose General Chief Complaint: Toxicology Problem Stated Complaint: Fentanyl OD,received narcan Time Seen by Provider: 06/25/23 15:20 History of Present Illness HPI Narrative: 23-year-old male with history of polysubstance abuse presents by EMS for a fentanyl overdose. Patient was found passed out in the [place] unresponsive and cyanotic. He was given 2 mg intranasal Narcan and 1 mg IV Narcan with improved mental status, and transported for further evaluation. Patient denies intent to harm himself. Intent: other (accidental) Related Data Previous Rx's Medication Instructions Recorded naloxone 4 mg/actuation nasal spray 4 mg intranasal Q2M PRN opioid 09/11/22 overdose #2 ea naloxone 4 mg/actuation nasal 4 mg intranasal Q3M PRN opioid 06/25/23 spray (Narcan) overdose #2 ea Allergies Allergy/AdvReac Type Severity Reaction Status Date / Time amoxicillin [AMOXICILLIN] Allergy Mild WELTS Verified 11/11/22 21:39 Review of Systems Review of Systems Narrative: Negative except as noted above Patient History Medical History Benzodiazepine abuse ADHD Conduct disorder (06/11/14) Asthma Medical clearance for incarceration Polydrug abuse Self-harming behavior SUICIDAL IDEATIONS Bradycardia Syncope Social History Smoking Status: Current every day smoker substance use type: marijuana Smoking Status: Current every day smoker tobacco type: cigarettes alcohol intake frequency: a few times a month Alcohol type: beer Substance Use Type: marijuana, heroin, amphetamines, tranquilizers, sedatives, opiates, club/studio designer drugs and methamphetamine Exam Narrative Exam Narrative: Const: Awake, alert, diaphoretic Eyes: PERRL, EOMI, conjunctiva normal Cardiac: Tachycardia, regular rhythm RESP: unlabored, clear bilaterally, no wheezing GI: Atraumatic, soft, nontender MSK: Atraumatic, full range of motion, pulses equal Skin: Cool, diaphoretic, intact Neuro: AO x3, CN II-XII grossly intact, moves all extremities Psych: Not suicidal, not homicidal Initial Vital Signs Initial Vital Signs: Vital Signs Temperature 98.0 F 06/25/23 15:19 Pulse Rate 91 H 06/25/23 15:19 Respiratory Rate 20 06/25/23 15:19 Blood Pressure 131/90 06/25/23 15:19 Pulse Oximetry 100 06/25/23 15:19 Oxygen Delivery Method Room Air 06/25/23 15:19 Course Orders Ordered: ED Orders 06/25/23 15:32 Consult to [employer] - Vascular Neurologist Stat Discontinued Medications Sodium Chloride (Normal Saline 0.9%) 1,000 mls @ 1,000 mls/hr IV BOLUS ONE Stop: 06/25/23 16:19 Last Infusion: 06/25/23 16:45 Dose: Infused Documented By: Admin: 06/25/23 15:48 Dose: 1,000 mls/hr Documented By: REMINGTON Naloxone HCl (Naloxone 4 Mg Nasal [place]) 4 mg MISC DIRECTED ONE Stop: 06/25/23 17:14 Last Admin: 06/25/23 17:20 Dose: 4 mg Documented By: REMINGTON Vital Signs Vital signs: Vital Signs - 8 hr 06/25/23 15:19 06/25/23 15:20 06/25/23 15:22 Temperature 98.0 F Pulse Rate 91 H 89 102 H Respiratory Rate 20 15 25 H Blood Pressure 131/90 Pulse Oximetry 100 98 99 Oxygen Delivery Method Room Air 06/25/23 15:22 06/25/23 15:25 06/25/23 15:25 Temperature Pulse Rate 92 H Respiratory Rate 15 Blood Pressure 135/80 131/90 Pulse Oximetry 99 Oxygen Delivery Method 06/25/23 15:30 06/25/23 15:30 06/25/23 15:35 Temperature Pulse Rate 86 89 Respiratory Rate 14 16 Blood Pressure 123/81 Pulse Oximetry 100 100 Oxygen Delivery Method 06/25/23 15:35 06/25/23 15:52 06/25/23 15:52 Temperature Pulse Rate 90 Respiratory Rate 17 Blood Pressure 127/85 129/78 Pulse Oximetry 99 Oxygen Delivery Method 06/25/23 16:00 06/25/23 16:00 06/25/23 16:30 Temperature Pulse Rate 82 96 H Respiratory Rate 16 28 H Blood Pressure 123/70 Pulse Oximetry 98 92 Oxygen Delivery Method 06/25/23 16:30 06/25/23 16:45 06/25/23 16:45 Temperature Pulse Rate 77 Respiratory Rate 20 Blood Pressure 131/92 H 133/90 Pulse Oximetry 91 Oxygen Delivery Method 06/25/23 17:00 06/25/23 17:00 06/25/23 17:15 Temperature Pulse Rate 77 81 Respiratory Rate 18 26 H Blood Pressure 132/87 Pulse Oximetry 93 96 Oxygen Delivery Method 06/25/23 17:15 Temperature Pulse Rate Respiratory Rate Blood Pressure 133/92 H Pulse Oximetry Oxygen Delivery Method MDM - Overdose Differential Diagnosis Differential diagnosis: Likely cocaine intoxication, poisoning by opiate or related narcotic and drug overdose MDM Narrative Medical decision making narrative: Accidental opiate overdose. Patient arrived awake, alert, placed on director of cardiac rehabilitation. He denies intent to harm self. Patient was observed for several hours on director of cardiac rehabilitation, he did not require any additional Narcan. At time of discharge patient was provided a Narcan prepack as well as a Narcan prescription which was sent to pharmacy of choice. He was awake, alert, oriented, neurologically intact upon discharge. Naloxone at Discharge Meets criteria for naloxone at discharge?: Yes Discharge Plan Departure Patient Disposition: Home Clinical Impression: Opiate overdose Qualifiers: Encounter type: initial encounter Injury intent: accidental or unintentional Qualified Code(s): T40.601A - Poisoning by unspecified narcotics, accidental (unintentional), initial encounter Instructions: Naloxone for Opiate Overdose - [facility] Prescriptions: New naloxone [Narcan] 4 mg/actuation spray,non-aerosol 4 mg intranasal Q3M PRN (Reason: opioid overdose) Qty: 2 0RF Rx Instructions: spray 1 dose into ONE nostril; alternate nostrils w each dose until help arrives No Action naloxone 4 mg/actuation spray,non-aerosol 4 mg intranasal Q2M PRN (Reason: opioid overdose) Qty: 2 5RF Rx Instructions: spray 1 dose into ONE nostril; alternate nostrils w each dose until help arrives Stand Alone Forms: Patient Portal/API
[2023-06-25] MEDS: SODIUM CHLORIDE 0.9% 1,000 ML 1000 ML IV (15:48)
[2023-06-25] MEDS: NALOXONE 4 MG NASAL SPRAY MISC (17:20)
== END 2023-06-25 17:25 | disposition home or self-care (01) ==
PROVIDERS: Emergency Provider Emergency Medicine; Family Provider Family Medicine
DX: T40.601A Poisoning by unspecified narcotics, accidental (unintentional), initial encounter (principal)
CPT/HCPCS: 99284; A9270